=== PATIENT | female | born 1970 | race Caucasian/White ===

== ENCOUNTER 2020-03-21 15:10 | Outpatient (REF) | payer MEDICAID, SELFPAY ==
--- NOTE | 2020-03-21 | XR_ITS ---
EXAMINATION: XR ELBOW, LEFT CLINICAL INFORMATION: Left elbow pain COMPARISON: None TECHNIQUE: AP, lateral, and oblique views of the left elbow. FINDINGS: The bones and soft tissues are normal. No fracture or joint effusion. Alignment is anatomic. Joint spaces are maintained. IMPRESSION: Normal left elbow.
== END 2020-03-21 15:11 | disposition home or self-care (01) ==
LOC: HO.XRAY 15:10
PROVIDERS: PCP Nurse Practitioner Family; Visit Provider Nurse Practitioner Family
DX: M25.522 Pain in left elbow (principal)
CPT/HCPCS: 73080

== ENCOUNTER 2021-07-26 08:10 | Outpatient (REF) | payer MEDICAID, SELFPAY ==
--- NOTE | ~2021-07-26 | XR_ITS ---
EXAMINATION: XR ELBOW, RIGHT CLINICAL INFORMATION: Lateral epicondylitis right elbow. COMPARISON: None TECHNIQUE: AP, lateral, and oblique views of the right elbow. FINDINGS: There is no evidence of acute fracture or dislocation of the right elbow. No right elbow effusion. Right elbow joint spaces are maintained. No significant soft tissue swelling is noted. There is a spur seen about the medial epicondyle with no definite lateral epicondylar calcification identified. XR/XR elbow RT min 3V IMPRESSION: Evidence for medial epicondylitis with no definite calcification or spurring about the lateral epicondyle. No elbow effusion.
== END 2021-07-26 08:11 | disposition home or self-care (01) ==
LOC: HO.XRAY 08:10
PROVIDERS: Absent Provider Registered Nurse Community Health; PCP Registered Nurse Community Health; Visit Provider Internal Medicine
DX: M77.11 Lateral epicondylitis, right elbow (principal)
CPT/HCPCS: 73080

== ENCOUNTER → 2021-08-20 14:38 | Outpatient (BNVA) | payer MEDICAID, SELFPAY | PROVIDERS: PCP Registered Nurse Community Health; Visit Provider Physician Assistant | DX: M77.11 Lateral epicondylitis, right elbow (principal) | CPT/HCPCS: 99202; J1020 ==

== ENCOUNTER 2021-09-20 07:52 | Outpatient (REF) | payer MEDICAID, SELFPAY ==
[2021-09-20 08:18] LABS: MANUAL DIFF FLAG NO
[2021-09-20 08:43] LABS: Basophils Percent Auto 0.7 % (0-2); Eosinophils Absolute Auto 0.2 X10*3/uL (0.0-0.4); Eosinophils Percent Auto 3.3 % (0-4); Hematocrit 41.5 % (37.0-47.0); Hemoglobin 13.8 g/dl (12.0-16.0); Imm Gran Abs Auto 0.02 X10*3/uL (0.00-0.03); Imm Gran Pct Auto 0.3 % (0.0-0.4); Mean Corpuscular HGB Conc 33.3 g/dl (31.0-35.0); Mean Corpuscular Hemoglobin 31.9 pg (27.0-33.0); Mean Corpuscular Volume 95.8 fL (80.0-98.0); Mean Platelet Volume 9.8 fL (9.4-12.3); Monocytes Absolute Auto 0.4 X10*3/uL (0.1-1.2); Monocytes Percent Auto 7.1 % (2-11); Neutrophils Absolute Auto 3.1 x10*3/uL (2.0-8.3); Neutrophils Percent Auto 53.6 % (45-73); Platelet Count 273 X10*3/uL (160-400); Red Blood Count 4.33 X10*6/uL (4.20-5.50); Red Cell Distribution Width 12.7 % (11.0-16.0); White Blood Count 5.8 X10*3/uL (4.8-10.8)
[2021-09-20 08:53] LABS: Estimated Average Glucose 100 mg/dL; Hemoglobin A1c % 5.1 %
[2021-09-20 09:08] LABS: Appearance Urine CLEAR; Color Urine YELLOW; Glucose Urine UA NEG (NEG); Leukocyte Esterase Urine NEG (NEG); Nitrite Urine NEG (NEG); Specific Gravity - Urine >= 1.030 (1.005-1.025); Urine Blood NEG (NEG); Urine Ketones NEG (NEG); Urine Protein NEG (NEG-TRACE)
[2021-09-20 09:19] LABS: Alanine Aminotransferase 22 U/L (0-31); Albumin Level 3.9 g/dL (3.5-5.0); Alkaline Phosphatase 92 U/L (39-117); Anion Gap 12 (12-20); Aspartate Amino Transferase 17 U/L (5-31); Bilirubin Total 0.7 mg/dL (0.0-1.0); Blood Urea Nitrogen 17 mg/dL (9-16); C Reactive Protein 0.42 mg/dL (< or = 0.50); Calcium 9.7 mg/dL (8.4-10.2); Carbon Dioxide 29 mmol/L (22-29); Chloride 107 mmol/L (96-108); Cholesterol 191 mg/dL; Estimated Glomerular Filt Rate > 60; Glucose Random 94 mg/dL (60-115); HDL Cholesterol 58 mg/dL; LDL Cholesterol Calculated 112 mg/dl; Potassium 4.7 mmol/L (3.3-5.1); Rheumatoid Factor < 15.0 IU/mL (<15.0); Sodium 143 mmol/L (135-145); Total Protein 6.7 g/dL (6.5-8.0); Triglycerides 107 mg/dL
[2021-09-20 09:28] LABS: HIV AB/AG Nonreactive (Nonreactive)
[2021-09-20 09:31] LABS: TSH reflex Free T4 2.93 uIU/mL (0.32-4.0); Vitamin D 25-OH Total 39.3 ng/mL (>30)
[2021-09-20 09:35] LABS: Uric Acid 6.4 mg/dL (2.4-5.7)
[2021-09-20 09:36] LABS: Syphilis Screen Nonreactive (Nonreactive)
[2021-09-20 09:42] LABS: Vitamin B12 170 pg/mL (200-900)
[2021-09-20 11:46] LABS: Erythrocyte Sedimentation Rate 11 MM/HR (0-20)
[2021-09-20 14:02] LABS: CT PCR NOT DETECTED (Not Detect.); NG PCR NOT DETECTED (Not Detect.)
[2021-09-24 12:21] LABS: Anti Nuclear Antibody Screen NEGATIVE (NEGATIVE)
== END 2021-09-20 07:53 | disposition home or self-care (01) ==
LOC: HO.LAB 07:52
PROVIDERS: PCP Internal Medicine; Visit Provider Internal Medicine
DX: Z11.4 Encounter for screening for human immunodeficiency virus [HIV] (principal); E55.9 Vitamin D deficiency, unspecified; E78.00 Pure hypercholesterolemia, unspecified; E79.0 Hyperuricemia without signs of inflammatory arthritis and tophaceous disease; K21.9 Gastro-esophageal reflux disease without esophagitis
CPT/HCPCS: 80053; 80061; 81003; 82306; 82607; 83036; 84443; 84550; 85025; 85652; 86038; 86039; 86140; 86431; 86780; 87389; 87491; 87591

== ENCOUNTER 2021-10-18 09:49 | Outpatient (REF) | payer MEDICAID, SELFPAY ==
--- NOTE | ~2021-10-18 | MM_ITS ---
EXAMINATION: MM SCREENING DIGITAL BREAST TOMOSYNTHESIS, BILATERAL CLINICAL INFORMATION: Screening. Asymptomatic. The lifetime risk of breast cancer based on the Tyrer-Cuzick Model is 7%. COMPARISON: Mammography: 03/01/2019, 02/18/2018, 01/06/2017 TECHNIQUE: Digital breast tomosynthesis is performed in both the craniocaudal and mediolateral oblique views along with computer-aided detection (CAD). Synthesized 2D images are generated from the tomosynthesis. FINDINGS: The breasts are almost entirely fatty (ACR BI-RADS breast composition Category a). There are no significant masses, abnormal calcifications, or other abnormalities. Background stromal and fibroglandular densities are stable. The axilla and skin contours are unremarkable. MM/MM tomosynthesis screening BI IMPRESSION: No mammographic evidence of malignancy. ASSESSMENT: BI-RADS 1: Negative RECOMMENDATION: Routine annual mammography screening. This patient's information was entered into a reminder system with a target due date for their next mammogram.
== END 2021-10-18 09:50 | disposition home or self-care (01) ==
LOC: HO.MAMMO 09:49
PROVIDERS: Visit Provider Internal Medicine
DX: Z12.31 Encounter for screening mammogram for malignant neoplasm of breast (principal)
CPT/HCPCS: 77063; 77067

== ENCOUNTER 2022-10-13 07:43 | Outpatient (REF) | payer MEDICAID, SELFPAY ==
--- NOTE | ~2022-10-13 | XR_ITS ---
EXAMINATION: XR ELBOW, RIGHT CLINICAL INFORMATION: Pain without injury. COMPARISON: None available. TECHNIQUE: AP, lateral, and oblique views of the right elbow. FINDINGS: The bones and soft tissues are normal. No fracture or joint effusion. Alignment is anatomic. Joint spaces are maintained. XR/XR elbow RT min 3V IMPRESSION: Normal right elbow.
--- NOTE | ~2022-10-13 | XR_ITS ---
EXAMINATION: XR WRIST, LEFT CLINICAL INFORMATION: Pain without injury. COMPARISON: None available. TECHNIQUE: PA, lateral, and oblique views of the left wrist. FINDINGS: The bones and soft tissues are normal. No fracture. Alignment is anatomic with normal joint spaces. There is a slight ulnar positive variance. No erosions or abnormal soft tissue calcifications. XR/XR wrist LT min 3V IMPRESSION: Normal left wrist.
== END 2022-10-13 07:44 | disposition home or self-care (01) ==
LOC: HO.XRAY 07:43
PROVIDERS: Visit Provider Family Medicine
DX: M25.521 Pain in right elbow (principal); M25.532 Pain in left wrist
CPT/HCPCS: 73080; 73110

== ENCOUNTER 2023-03-26 12:40 | Outpatient (REF) | payer MEDICAID, SELFPAY ==
--- NOTE | ~2023-03-26 | XR_ITS ---
EXAMINATION: XR CHEST CLINICAL INFORMATION: Cough. History of contact with suspected Covid exposure. COMPARISON: None available. TECHNIQUE: 2 views of the chest were obtained. FINDINGS: Lungs are well expanded and clear. No evidence of interstitial infiltrate, airspace disease, pleural effusion or pneumothorax. Cardiac silhouette is normal in size. The hilar contours are normal. There is dextroscoliosis of the thoracic spine. XR/XR chest 2V IMPRESSION: No acute findings. No radiographic evidence of pneumonia.
== END 2023-03-26 12:41 | disposition home or self-care (01) ==
LOC: HO.HHCX 12:40
PROVIDERS: Visit Provider Internal Medicine
DX: Z20.822 Contact with and (suspected) exposure to COVID-19 (principal); R05.1 Acute cough
CPT/HCPCS: 71046

== ENCOUNTER 2024-10-10 11:42 | Outpatient (REF) | payer MEDICAID, SELFPAY ==
--- NOTE | ~2024-10-10 | XR_ITS ---
EXAMINATION: XR SHOULDER, RIGHT CLINICAL INFORMATION: severe worsening neck and shoulder pain COMPARISON: None available. TECHNIQUE: AP external rotation, Grashey, scapular Y, and axillary views of the right shoulder. FINDINGS: No acute cortical disruption or malalignment. No lytic or blastic lesions. No gross degenerative changes. No metallic or opaque foreign body. S-shaped curvature of the thoracic spine. XR/XR shoulder RT min 2V IMPRESSION: Normal x-ray right shoulder. Scoliosis, thoracic spine. Electronically signed by: Steve Hedrick MD 10/10/2024 01:04 PM EDT
--- NOTE | ~2024-10-10 | XR_ITS ---
EXAMINATION: XR CERVICAL SPINE CLINICAL INFORMATION: PAIN COMPARISON: None available. TECHNIQUE: 3 views of the cervical spine were obtained. FINDINGS: Craniocervical junction is intact. Marginal osteophyte formation at C5-6 and C6-7 levels. Normal alignment. No lytic or blastic lesions. Upper airway is patent. Edentulous. XR/XR cervical spine 3V IMPRESSION: Cervical spondylosis, C5-6 and C6-7 levels. Electronically signed by: Steve Hedrick MD 10/10/2024 01:03 PM EDT
--- OUTSIDE RECORDS SUMMARY | 2024-10-10 14:04 | XMS_ITS | Encounter Summary ---
Author Organization [employer] Address [address] [facility] [address] [place] [address] Care Team Providers Care Oil And Gas Principal Name Role Phone Nedra Bob Primary Care Provider [phone] Hortensia Iraheta MD Primary Care Provider + Reason for Visit * Reason Comments Med Refill Encounter Details Date Type Department Care Team (Late st Contact Info) Description 10/04/[address] [facility] [address] [place] [address] Nedra Bob FNP [address] [place] [address] Idiopathic gout, unspecified chronicity, unspecified site Social History Tobacco Use Types Packs/Day Years Used Date Smoking Tobacco: Never Assessed Comments Unknown Sex and Gender Information Value Date Recorded Sex Assigned at Female 04/14/2022 10:15 AM EDT Legal Sex Female 10:15 AM EDT Gender Identity Female 04/14/2022 10:15 AM EDT Sexual Orientation Choose not to disclose 2021 10:15 AM EDT documented as of this encounter Miscellaneous Notes * Telephone Encounter - Nedra Bob CNP - 10/08/2022 5:26 PM EDT Approving, but needs appt for additional refills. documented in this encounter Plan of Treatment Not on file documented as of this encounter Visit Diagnoses Diagnosis Idiopathic gout, unspecified chronicity, unspecified site documented in this encounter Care Teams Oil And Gas Principal Relationship Specialty Start Date End Date Nedra Bob FNP [address] [place] [address] PCP - General Family Medicine 03/21/22 02/15/24 Hortensia Iraheta MD [address] [place] [address] PCP - General Internal Medicine 02/16/24 documented as of this encounter
--- OUTSIDE RECORDS SUMMARY | 2024-10-10 14:04 | XMS_ITS | Encounter Summary ---
Author Organization [email or web address] Address [address] [facility] [address] [place] [address] Care Team Providers Care French Instructor Name Role Phone Nedra Bob Primary Care Provider [phone] Hortensia Iraheta MD Primary Care Provider + Reason for Visit * Reason Comments Med Refill Encounter Details Date Type Department Care Team (Late st Contact Info) Description 12/09/[address] [facility] [address] [place] [address] Marilyn Hinds DO [address] [place], [place] [id number] Social History Tobacco Use Types Packs/Day Years Used Date Smoking Tobacco: Former Cigarettes Q uit: 2018 Passive Smoke Exposure: Never Smokeless Tobacco: Never Alcohol Use Standard Drinks/Week Comments Yes 0 (1 standard drink = 0.6 oz pur e alcohol) occasional Depression Answer Date Recorded Patient Health Questionnaire-9 Score 3 10/22/2022 Depression Answer Date Recorded Patient Health Questionnaire-2 Score 0 10/22/2022 Comments Unknown Sex and Gender Information Value Date Recorded Sex Assigned at Female 04/14/2022 10:15 AM EDT Legal Sex Female 10:15 AM EDT Gender Identity Female 04/14/2022 10:15 AM EDT Sexual Orientation Choose not to disclose 2021 10:15 AM EDT COVID-19 Exposure Response Date Recorded In the last 10 days, have yo u been in contact with someone who was confirmed or suspected to have Coronavirus/COVID-19? No / Unsure 11/21/2022 1:55 PM EDT documented as of this encounter Plan of Treatment Not on file documented as of this encounter Visit Diagnoses Not on filedocumented in this encounter Additional Health Concerns Assessment Noted Time PHQ-9 Depression Total Score: 3 10/23/19 23 2:00 PM EDT documented as of this encounter Care Teams French Instructor Relationship Specialty Start Date End Date Nedra Bob FNP [address] [place] [address] PCP - General Family Medicine 03/21/22 02/15/24 Hortensia Iraheta MD [address] [place] [address] PCP - General Internal Medicine 02/16/24 documented as of this encounter
--- OUTSIDE RECORDS SUMMARY | 2024-10-10 14:04 | XMS_ITS | Encounter Summary ---
Author Organization [employer] Address [address] [facility] [address] [place] [address] Care Team Providers Care Pulverizer Feeder Name Role Phone Hortensia Iraheta MD Primary Care Provider + Encounter Details Date Type Department Care Team (Latest Contact Info) Description 10/10/2024 Travel Social History Tobacco Use Types Packs/Day Years Used Date Smoking Tobacco: Former Cigarettes Q uit: 2018 Passive Smoke Exposure: Never Smokeless Tobacco: Never Alcohol Use Standard Drinks/Week Comments Yes 0 (1 standard drink = 0.6 oz pur e alcohol) occasional Depression Answer Date Recorded Patient Health Questionnaire-9 Score 3 10/22/2022 Housing Stability Answer Date Recorded What is your housing situation today? I have maria a walters 03/31/[address] you li ve. Do you have problems with any of the following? None of the above 03/31/2023 Food Insecurity Answer Date Recorded Within the past 12 months, y ou worried that your food would run out before you got money to buy more: Never True 03/31/2023 Within the past 12 months,th e food you bought just didn't last and you didn't have enough money to get more: Never True Transportation Answer Date Recorded In the past 12 months, has l ack of transportation kept you from medical appts, meetings, work or from getting things needed for daily living? No 03/31/2023 Utilities Answer Date Recorded In the past 12 months, has t he electric, gas, oil or water company threatened to shut off services in your home? No 03/31/2023 Depression Answer Date Recorded Patient Health Questionnaire-2 Score 0 10/22/2022 Comments Unknown Sex and Gender Information Value Date Recorded Sex Assigned at Female 04/14/2022 10:15 AM EDT Legal Sex Female 10:15 AM EDT Gender Identity Female 04/14/2022 10:15 AM EDT Sexual Orientation Choose not to disclose 2021 10:15 AM EDT documented as of this encounter Plan of Treatment Not on file documented as of this encounter Visit Diagnoses Not on filedocumented in this encounter Additional Health Concerns Assessment Noted Time PHQ-9 Depression Total Score: 3 10/23/19 23 2:00 PM EDT documented as of this encounter Care Teams Pulverizer Feeder Relationship Specialty Start Date End Date Hortensia Iraheta MD [address] [place] [id number] PCP - General Internal Medicine 02/16/24 documented as of this encounter
--- OUTSIDE RECORDS SUMMARY | 2024-10-10 14:04 | XMS_ITS | Encounter Summary ---
Author Organization [employer] Address [address] [facility] [address] [place] [address] Care Team Providers Care Grease Rack Worker Name Role Phone Nedra Bob Primary Care Provider [phone] Hortensia Iraheta MD Primary Care Provider + Reason for Visit * Reason Comments Med Refill Encounter Details Date Type Department Care Team ([facility] st Contact Info) Description 04/05/2023 Refill [facility] [address] [place] [address] Marilyn Hinds, DO [address] [place] [address] Social History Tobacco Use Types Packs/Day Years [...] documented as of this encounter Care Teams Grease Rack Worker Relationship Specialty Start Date End Date Nedra Bob FNP [address] [place] [address] PCP - General Family Medicine 03/21/22 02/15/24 Hortensia Iraheta MD [address] [place] [address] PCP - General Internal Medicine 02/16/24 documented as of this encounter
--- OUTSIDE RECORDS SUMMARY | 2024-10-10 14:04 | XMS_ITS | Encounter Summary ---
Author Organization [employer] Address [address] [facility] [address] [place] [address] Care Team Providers Care Ob/Gyn Doctor Name Role Phone Nedra Bob Primary Care Provider [phone] Hortensia Iraheta MD Primary Care Provider + Reason for Visit * Reason Comments Med Refill Encounter Details Date Type Department Care Team ([facility] st Contact Info) Description 07/12/2023 Refill [facility] [address] [place] [address] Marilyn Hinds, DO [address] [place] [address] Social History Tobacco Use Types Packs/Day Years [...] documented as of this encounter Care Teams Ob/Gyn Doctor Relationship Specialty Start Date End Date Nedra Bob FNP [address] [place] [address] PCP - General Family Medicine 03/21/22 02/15/24 Hortensia Iraheta MD [address] [place] [address] PCP - General Internal Medicine 02/16/24 documented as of this encounter
--- OUTSIDE RECORDS SUMMARY | 2024-10-10 14:04 | XMS_ITS | Encounter Summary ---
Author Organization [employer] Address [address] [facility] [address] [place] [address] Care Team Providers Care Logging Truck Driver Name Role Phone Hortensia Iraheta MD Primary Care Provider + Encounter Details Date Type Department Care Team (Late st Contact Info) Description 10/10/2024 Orders Only [facility] [address] [place] [address] Marilyn Hinds DO [address] [place] [address] Social History Tobacco Use Types Packs/Day Years [...] the past 12 months, has t he [employer], gas, oil or water company threatened to [...] on file documented as of this encounter Procedures Procedure Name Priority Date/Time Associated Diagnosis Comments XR CERVICAL SPINE 3V Routine 10/10/2024 11:43 AM EDT documented in this encounter Results * XR CERVICAL SPINE 3V (10/10/2024 11:43 AM EDT) Anatomical Region Laterality Modality Abdomen Radiographic Kat ging 10/10/2024 11:4 3 AM EDT Narrative 10/10/2024 1:06 PM EDT ?[facility] ?[address] ?[place] [address] ?XRay Report ? Signed ? Patient: Arin Berger ?MR#: ?? [id number] ? : 1970 ?Acct:[id number] ? Age/Sex: 53 / F ?ADM Date: 10/10/24 ? Loc: HO.HHCX ? Attending Dr: Marilyn Hinds DO ? Ordering Physician: Marilyn Hinds DO ?? Date of Service: 10/10/24 ?? Procedure(s): XR cervical spine 3V ?? Accession Number(s): [id number] ? cc: Marilyn Hinds DO ? EXAMINATION: ?? XR CERVICAL SPINE ? CLINICAL INFORMATION: ?? PAIN ? COMPARISON: ?? None available. ? TECHNIQUE: ?? 3 views of the cervical spine were obtained. ? FINDINGS: ?? Craniocervical junction is intact. Marginal osteophyte formation at ?? C5-6 and C6-7 levels. ?? Normal alignment. ?? No lytic or blastic lesions. Upper airway is patent. ?? Edentulous. ? XR/XR cervical spine 3V ?? IMPRESSION: ?? Cervical spondylosis, C5-6 and C6-7 levels. ? Electronically signed by: ??Steve Hedrick MD ??10/10/2024 01:03 PM ?? EDT RP ? Dictated By: ?Steve Levine MD ? Signed By: ?<Electronically signed by Steve Beltre MD in OV> ? 10/10/24 1303 ? DD/ 1143 ? TD/TT: 10/10/24 1200 ? Carcass Washer: ? Procedure Note Donotlisetteinterpreter, Image - 10/10/[address] [address] XRay Report Signed Patient: Arin Berger AMR#: [id number] : 1970Acct:[id number] Age/Sex: 53 / FADM Date: 10/10/24 Loc: .HHCX Attending Dr: Marilyn Hinds DO Ordering Physician: Marilyn Hinds DO Date of Service: 10/10/24 Procedure(s): XR cervical spine 3V Accession Number(s): [id number] cc: Marilyn Hinds DO EXAMINATION: XR CERVICAL SPINE CLINICAL INFORMATION: PAIN COMPARISON: None available. TECHNIQUE: 3 views of the cervical spine were obtained. FINDINGS: Craniocervical junction is intact. Marginal osteophyte formation at C5-6 and C6-7 levels. Normal alignment. No lytic or blastic lesions. Upper airway is patent. Edentulous. XR/XR cervical spine 3V IMPRESSION: Cervical spondylosis, C5-6 and C6-7 levels. Electronically signed by: Steve Hedrick MD 10/10/2024 01:03 PM EDT Dictated By: Steve Levine MD Signed By: <Electronically signed by Steve Beltre MDin OV> 10/10/24 1303 DD/ 1143 TD/TT: 10/10/24 1200 Carcass Washer: us Marilyn Hinds DO IMG XR PROCEDURES Final Resu lt documented in this encounter Visit Diagnoses Not on filedocumented in this encounter Additional Health Concerns Assessment Noted Time PHQ-9 Depression Total Score: 3 10/23/19 23 2:00 PM EDT documented as of this encounter Care Teams Logging Truck Driver Relationship Specialty Start Date End Date Hortensia Iraheta MD [address] [place] [id number] PCP - General Internal Medicine 02/16/24 documented as of this encounter
--- OUTSIDE RECORDS SUMMARY | 2024-10-10 14:04 | XMS_ITS | Clinical Summary ---
Author Organization [employer] Address [address] [facility] 7t [place] [address] Care Team Providers Care Packer Sausage And Wiener Name Role Phone Hortensia Iraheta MD Primary Care Provider + Allergies Active Allergy Reactions Criticality Noted Date Comments Penicillin G 04/01/2012 Sulfamethoxazole 04/01/2012 Trimethoprim 04/01/2012 Medications cyanocobalamin (Vitamin B-12) 1000 MCG tablet TAKE 1 TABLET (1,000 MCG) BY MOUTH IN THE MORNING 90 tablet 1 07/13/19 24 Active Ventolin HFA 108 (90 Base) MCG/ACT inhaler INHALE 2 PUFFS EVERY 4 HOURS IF NEEDED FOR WHEEZING. 18 g 3 02/09/20 24 Active loratadine (Claritin) 10 MG tablet TAKE 1 TABLET BY MOUTH EVERY DAY NEEDED FOR ALLERGY 90 tablet 07/15/19 25 Active allopurinol (Zyloprim) 100 MG tabletIndicati ons:Idiopathic gout, unspecified chronicity, unspecified site TAKE 1 TABLET BY MOUTH EVERY DAY 90 tablet 07/15/19 25 Active famotidine (Pepcid) 40 MG tablet TAKE 1 TABLET BY MOUTH EVERYDAY AT BEDTIME 90 tablet 07/29/19 25 Active baclofen (Lioresal) 10 MG tablet TAKE 1 TABLET (10 MG) BY MOUTH NEEDED IN THE MORNING , AT NOON, AND AT BEDTIME FOR MUSCLE SPASMS 60 tablet 1 10/11/19 25 Active Diclofenac Sodium 1 % gel Apply 2 g topically if needed in the morning and at bedtime (pain). 150 g 3 10/11/19 25 Active naproxen (Naprosyn) 500 MG tablet Take 1 tablet (500 mg) by mouth if needed in the morning and at bedtime for mild pain. 30 tablet 1 10/11/19 25 2025 Active methylPREDNISo lone (Medrol Dospak) 4 MG tablets Follow schedule on package instructions 21 tablet 10/11/19 25 2024 Active LORazepam (Ativan) 0.5 MG tabletIndicati ons:Neck and shoulder pain Take one tablet PO once 30 minutes prior to MRI 1 tablet 10/11/19 25 Active acetaminophen (Tylenol 8 Hour) 650 MG ER tablet Take 1 tablet (650 mg) by mouth every 8 (eight) hours if needed for mild pain. 60 tablet 1 10/11/19 25 Active Diclofenac Sodium 1 % gel Apply 2 g topically if needed in the morning and at bedtime (pain). 150 g 3 10/10/19 23 2024 Discontinued(R eorder (will not trigger notification to Pharmacy)) baclofen (Lioresal) 10 MG tablet TAKE 1 TABLET (10 MG) BY MOUTH NEEDED IN THE MORNING , AT NOON, AND AT BEDTIME FOR MUSCLE SPASMS 60 tablet 1 12/18/19 23 2024 Discontinued(R eorder (will not trigger notification to Pharmacy)) acetaminophen (Tylenol 8 Hour) 650 MG ER tablet TAKE 1 TABLET BY MOUTH EVERY 8 HOURS NEEDED FOR PAIN 40 tablet 1 12/07/19 24 2024 Discontinued(R eorder (will not trigger notification to Pharmacy)) Active Problems Problem Noted Date Diagnosed Date Contact with and (suspected) exposure to covid-1 9 03/26/2023 Acute cough 03/26/2023 COVID-19 03/26/2023 Assessment & Plan (03/26/2023 12:30 PM EDT): Pt initially tested positive 03/19/2023 with an at home test kit per her report. Initial symptoms included fever, sore throat and cough. She has been using over the counter cough suppressants with good relief. She feels better overall, no fever for over 72 hrs, but still having dry cough, No sob or any other associated symptoms. O2 sat normal, lungs clear Overall improving. Not a candidate for antivirals given that its been 7 days since she tested positive for the first time Today her test is still positive Plan: Continue conservative measures. Excuse for work until Thursday, Chest x-ray gien persistent cough Follow up if symptoms worsen or do not continue to improve Lateral epicondylitis of left elbow 10/09/2022 Pain in elbow 10/09/2022 Vitamin D deficiency 07/15/2017 Mild intermittent asthma 09/26/2015 Encounters Date Type Department Care Team Description 10/10/2024 11:15 AM EDT Office Visit [facility] [address] [place] [address] Marilyn Hinds DO Neck and shoulder pain (Primary Dx) 10/10/2024 Orders Only [facility] [address] [place] [address] Marilyn Hinds DO 10/10/2024 Travel 09/01/2024 10:00 AM EDT Office Visit [facility] [address] [place] [address] DanasSocorro, OD Hyperopia of both eyes with astigmatism and presbyopia (Primary Dx); 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 09/01/2024 Travel 08/26/2024 Population Health Risk Score [facility] Department [address] [id number] Provider, Population Health Generic 07/28/2024 Refill [facility] [address] [place] [address] Nedra Bob FNP 07/15/2024 Refill [facility] [address] [place] [address] Nedra Bob FNP Idiopathic gout, unspecified chronicity, unspecified site from Last 3 Months Immunizations Name Administration Dates Next Due MMR 10/15/1994 TD (adult), 2 Lf tetanus tox oid, preservative free, adsorbed 04/10/2008 Tdap 04/25/2016 Family History Medical History Relation Name Comments Diabetes type II Father Lymphoma Mother Relation Name Status Comments Father Mother Social History Tobacco Use Types Packs/Day Years Used Date Smoking Tobacco: Former Cigarettes Q uit: 2018 Passive Smoke Exposure: Never Smokeless Tobacco: Never Tobacco Cessation:Counseling Given: Not Answered Alcohol Use Standard Drinks/Week Comments Yes 0 [...] not to disclose 2021 10:15 AM EDT Last Filed Vital Signs Vital Sign Reading Time Taken Comments Blood Pressure 136/78 10/10/2024 11:02 AM EDT Pulse 68 10/10/2024 11:02 AM EDT Temperature 36.8 ??C (98.3 ??F) 10/10/2024 11:02 AM E DT Respiratory Rate 21 10/10/2024 11:02 AM EDT Oxygen Saturation 95% 10/10/2024 11:02 AM EDT Inhaled Oxygen Concentration - - Weight 69 kg (152 lb 2 oz) 10/10/2024 11:02 AM E DT Height 160 cm (5' 3 ) 10/10/2024 11:02 AM EDT Body Mass Index 26.95 10/10/2024 11:02 AM EDT Plan of Treatment Health Maintenance Due Date Last Done Comments CT Colonography 1969 Colonoscopy 1969 Colorectal Cancer Screening 1969 FIT DNA/Cologuard 1969 FIT 1969 FOBT 1969 Sigmoidoscopy 1969 Alcohol/Substance Use Screening 1981 Hepatitis C Screening 12/22/1987 Hepatitis B Vaccines (1 of 3 - 19+ 3-dose series) 1988 Pneumococcal Vaccine: 50+ Years (1 of 2 - PCV) 1988 Pap Smear 1990 Zoster Vaccines (1 of 2) 12/22/2019 Cervical Cancer Screening 02/09/2022 HPV/Cotest 02/09/2022 02/09/2017 Mammogram 10/19/2023 10/18/2021, 03/03/2019, 02/19/2018 Depression Screening 10/23/2023 10/22/2022, 10/22/2022 SDOH Screening 10/23/2023 10/22/2022 COVID-19 Vaccine (3 - 2023-2 5 season) 2024 07/25/2021, 05/21/2021 Influenza Vaccine (#1) 2024 Tobacco Screening 10/10/2025 10/10/2024 DTaP/Tdap/Td Vaccines (2 - T d or Tdap) 04/25/2026 04/25/2016, 04/10/2008 RSV Patients and Patients Aged 60 years or older (1 - 1-dose 75+ series) 2044 HIV Screening Completed 10/28/2022, 09/20/2021 HIB Vaccines Aged Out No longer eligi ble based on patient's age to complete this topic HPV Vaccines Aged Out No longer eligi ble based on patient's age to complete this topic Hepatitis A Vaccines Aged Out No long er eligible based on patient's age to complete this topic IPV Vaccines Aged Out No longer eligi ble based on patient's age to complete this topic Meningococcal Vaccine Aged Out No shannon mirlande eligible based on patient's age to complete this topic RSV under 20 months Aged Out No longe r eligible based on patient's age to complete this topic Rotavirus Vaccines Aged Out No longer eligible based on patient's age to complete this topic Procedures Procedure Name Priority Date/Time Associated Diagnosis Comments XR CERVICAL SPINE 3V Routine 10/10/2024 11:43 AM EDT XR SHOULDER 2+ VIEWS RIGHT Routine 10/10/2024 11:42 AM EDT Neck and shoulder pain HIV 1 RNA, QN PCR W/RFL PETE (RTI,PI,INTEGRASE) Routine 10/28/2022 9:33 AM EDT Routine screening for STI (sexually transmitted infection) MAMMOGRAM GENERIC Routine 10/18/2021 10: 15 AM EDT ZZZ HISTORICAL HPV MRNA E6/E7 Routine 02/09/2017 9:55 AM EDT from Last 3 Months or Most Recently Relevant to Health Maintenance Results * XR CERVICAL SPINE 3V (10/10/2024 11:43 AM EDT) Anatomical Region Laterality Modality Abdomen Radiographic Kat ging 10/10/2024 11:4 3 AM EDT Narrative 10/10/2024 1:06 PM EDT ?[facility] ?[address] ?[place] [address] ?XRay Report ? Signed ? Patient: Arin Berger ?MR#: ?? [id number] ? : 1970 ?Acct:[id number] ? Age/Sex: 53 / F ?ADM Date: 10/10/24 ? Loc: HO.[facility]X ? Attending Dr: Marilyn Hinds DO ? Ordering Physician: Marilyn Hinds DO ?? Date of Service: 10/10/24 ?? Procedure(s): XR cervical spine 3V ?? Accession Number(s): [id number] ? cc: Marilyn Hinds DO ? EXAMINATION: [...] DD/ 1143 ? TD/TT: 10/10/24 1200 ? Policy And Planning Manager: ? Procedure Note Donotlisetteinterpreter, Image - 10/10/[address] [address] XRay Report Signed Patient: Arin Berger AMR#: [id number] : 1970Acct:[id number] Age/Sex: 53 / FADM Date: 10/10/24 [facility] Dr: Marilyn Hinds DO Ordering Physician: Marilyn Hinds DO Date of Service: 10/10/24 Procedure(s): XR cervical spine 3V Accession Number(s): [id number] cc: Marilyn Hinds DO EXAMINATION: XR CERVICAL [...] 10/10/24 1303 DD/ 1143 TD/TT: 10/10/24 1200 Policy And Planning Manager: us Marilyn Jurcsak DO IMG XR PROCEDURES Final Resu lt * XR Shoulder 2+ Views Right (10/10/2024 11:42 AM EDT) Anatomical Region Laterality Modality Upper Extremities, Shoulder Right Radi ographic Imaging 10/10/2024 11:4 2 AM EDT Narrative 10/10/2024 1:07 PM EDT ?[facility] ?[address] ?[place] [address] ?XRay Report ? Signed ? Patient: Arin Berger ?MR#: ?? [id number] ? : 1970 ?Acct:[id number] ? Age/Sex: 53 / F ?ADM Date: 10/10/24 ? Loc: HO.[facility]X ? Attending Dr: Marilyn Hinds DO ? Ordering Physician: Marilyn Hinds DO ?? Date of Service: 10/10/24 ?? Procedure(s): XR shoulder RT min 2V ?? Accession Number(s): [id number] ? cc: Marilyn Hinds DO ? EXAMINATION: ?? XR SHOULDER, RIGHT ? CLINICAL INFORMATION: ?? severe worsening neck and shoulder pain ? COMPARISON: ?? None available. ? TECHNIQUE: ?? AP external rotation, Grashey, scapular Y, and axillary views of the ?? right shoulder. ? FINDINGS: ?? No acute cortical disruption or malalignment. No lytic or blastic ?? lesions. No gross degenerative changes. No metallic or opaque foreign ?? body. S-shaped curvature of the thoracic spine. ? XR/XR shoulder RT min 2V ?? IMPRESSION: ?? Normal x-ray right shoulder. ?? Scoliosis, thoracic spine. ? Electronically signed by: ??Steve Hedrick MD ??10/10/2024 01:04 PM ?? EDT RP ? Dictated By: ?Steve Levine MD ? Signed By: ?<Electronically signed by Steve Beltre MD in OV> ? 10/10/24 1304 ? DD/ 1142 ? TD/TT: 10/10/24 1200 ? Policy And Planning Manager: ? Procedure Note Simona, Image - 10/10/[address] [address] XRay Report Signed Patient: Arin Berger AMR#: [id number] : 1970Acct:[id number] Age/Sex: 53 / FADM Date: 10/10/24 Loc: [facility] Attending Dr: Marilyn Hinds DO Ordering Physician: Marilyn Hinds DO Date of Service: 10/10/24 Procedure(s): XR shoulder RT min 2V Accession Number(s): [id number] cc: Marilyn Hinds DO EXAMINATION: XR SHOULDER, RIGHT CLINICAL INFORMATION: severe worsening neck and shoulder pain COMPARISON: None available. TECHNIQUE: AP external rotation, Grashey, scapular Y, and axillary views of the right shoulder. FINDINGS: No acute cortical disruption or malalignment. No lytic or blastic lesions. No gross degenerative changes. No metallic or opaque foreign body. S-shaped curvature of the thoracic spine. XR/XR shoulder RT min 2V IMPRESSION: Normal x-ray right shoulder. Scoliosis, thoracic spine. Electronically signed by: Steve Hedrick MD 10/10/2024 01:04 PM EDT Dictated By: Steve Levine MD Signed By: <Electronically signed by Steve Beltre MDin OV> 10/10/24 1304 DD/ 1142 TD/TT: 10/10/24 1200 Policy And Planning Manager: Marilyn Hinds DO IMG XR PROCEDURES Final Resu lt * HIV-1 RNA, Quantitative, Real-Time PCR with Reflex to Genotype (RTI, PI, Integrase) (10/28/2022 9:33 AM EDT) HIV 1 RNA, QN PCR NOT DETECTED copies/mL [facility], HIV 1 RNA, QN PCR NOT DETECTED Log copies/mL [facility], Comment: REFERENCE RANGE: NOT DETECTED copies/mL ?NOT DETECTED ??Log copies/mL This test was performed using Real-Time Polymerase Chain Reaction. Reportable range is 20 to 10,000,000 copies/mL (1.30-7.00 Log copies/mL). 10/28/2022 9:33 AM EDT 10/28/2022 9:34 AM EDT Narrative [facility] - 11/01/2022 1:28 PM EDT FASTING:NO FASTING: NO Nedra Bob MEDIA MONITOR LAB BLOOD ORDERABLES Final Resu lt [facility] [address], [place] [address] [employer] [facility], [address] [place] [phone] * Mammography Report 1 (10/18/2021 10:15 AM EDT) Anatomical Region Laterality Modality Breast Bilateral Mammography 10/18/2021 10:1 5 AM EDT Narrative 10/21/2021 9:21 AM EDT Refer to the Notes tab for result details [facility] Procedure: Mammography Report 1 Procedure Note ProviderDonta MD - 09/07/2022 Refer to the Notes tab for result details [facility] Procedure: Mammography Report 1 Qasim Nuñez MD IMG BI PROCEDURES Final Resu lt * HPV mRNA E6/E7 (02/09/2017 9:55 AM EDT) HPV mRNA E6/E7 Not Detected NOT DETECTED [facility] Comment: This test was performed using the APTIMA(R) HPV Assay ([employer] This assay detects E6/E7 viral messenger RNA (mRNA) from 14 high-risk HPV types (16,18,31,33,35,39,45,51, 52,56,58,59,66,68). For additional information please refer to: http://education.[employer]/faq/YCA367l8 (This link is being provided for informational/ educational purposes only.) Test Performed by [employer], [employer] [facility], [address] [place] [id number] En Gordon M.D., Ph.D., Director of Laboratories , [place] [id number] Please note: ??Effective 02/25/2016, HPV testing will be performed using [employer]'s APTIMA test which targets mRNA. Detecting mRNA instead of DNA, as in older methods, offers significant improvements in specificity. 02/09/2017 9:55 AM EDT us Dora Sanders NP HISTORICAL/NON ORDERABLE LABS Fi nal Result [facility] [address] from Last 3 Months or Most Recently Relevant to Health Maintenance Insurance [facility] C3 HSN FULL Care Teams Packer Sausage And Wiener Relationship Specialty Start Date End Date Hortensia Iraheta MD [address] [place] [address] PCP - General Internal Medicine 02/16/24
--- OUTSIDE RECORDS SUMMARY | 2024-10-10 14:04 | XMS_ITS | Encounter Summary ---
Author Organization [employer] Address [address] [facility] [address] [place] [address] Care Team Providers Care Conveyor Feeder Offbearer Name Role Phone Hortensia Iraheta MD Primary Care Provider + Reason for Referral * Imaging (Routine) - Pending Review Specialty Diagnoses / Procedures Referred By Controdo martínez Referred To Contact Radiology Diagnoses Neck and shoulder pain Procedures MR Shoulder w/o Contrast Right Marilyn Hinds DO [address] [place] [address] Phone: tel: fax: Referral ID Status Reason Start Date Expiration Date V isits Requested Visits Authorized [id number] Pending Review 10/10/2024 10/10/2025 1 1 Encounter Details Date Type Department Care Team (Late st Contact Info) Description 10/10/2024 11:15 AM EDT Office Visit [facility] [address] [place], [place] [phone] Marilyn Hinds DO [address] [place], [place] [phone] Neck and shoulder pain (Primary Dx) Social History Tobacco Use Types Packs/Day Years [...] AM EDT documented as of this encounter Last Filed Vital Signs Vital Sign Reading [...] Mass Index 26.95 10/10/2024 11:02 AM EDT documented in this encounter Plan of Treatment Scheduled Orders Name Type Priority Associated Diagnoses Orde r Schedule XR Cervical Spine 2-3 Views Imaging Routine Neck and shoulder pain Expected: 10/10/2024, Expires: 10/10/2025 MR Shoulder w/o Contrast Right Imaging Routine Neck and shoulder pain Expected: 10/10/2024, Expires: 10/10/2025 documented as of this encounter Procedures Procedure Name Priority Date/Time Associated Diagnosis Comments XR SHOULDER 2+ VIEWS RIGHT Routine 10/10/2024 11:42 AM EDT Neck and shoulder pain documented in this encounter Results * XR Shoulder 2+ Views Right (10/10/2024 11:42 AM EDT) Anatomical Region Laterality Modality Upper Extremities, Shoulder Right Radi ographic Imaging 10/10/2024 11:4 2 AM EDT Narrative 10/10/2024 1:07 PM EDT ?[facility] ?[address] ?[place] [address] ?XRay Report ? Signed ? Patient: Arin Berger ?MR#: ?? [id number] ? : 1970 ?Acct:[id number] ? Age/Sex: 53 / F ?ADM Date: 10/10/24 ? Loc: HO.[facility] ? Attending Dr: Marilyn Hinds DO ? Ordering Physician: Marilyn Hinds DO ?? Date of Service: 10/10/24 ?? Procedure(s): XR shoulder RT min 2V ?? Accession Number(s): [id number] ? cc: Marilyn Hinds DO ? EXAMINATION: [...] DD/ 1142 ? TD/TT: 10/10/24 1200 ? Help Desk Team Leader: ? Procedure Note Donotlisetteinterpreter, Image - 10/10/[address] [address] XRay Report Signed Patient: Arin Berger AMR#: [id number] : 1970Acct:[id number] Age/Sex: 53 / FADM Date: 10/10/24 Loc: [facility] Attending Dr: Marilyn Hinds DO Ordering Physician: Marilyn Hinds DO Date of Service: 10/10/24 Procedure(s): XR shoulder RT min 2V Accession Number(s): [id number] cc: Marilyn Hinds DO EXAMINATION: XR SHOULDER, [...] 10/10/24 1304 DD/ 1142 TD/TT: 10/10/24 1200 Help Desk Team Leader: Marilyn Hinds DO IMG XR PROCEDURES Final Resu lt documented in this encounter Visit Diagnoses Diagnosis Neck and shoulder pain- Primary documented in this encounter Additional Health Concerns Assessment Noted Time PHQ-9 Depression Total Score: 3 05/10/20 23 2:00 PM EDT documented as of this encounter Care Teams Conveyor Feeder Offbearer Relationship Specialty Start Date End Date Hortensia Iraheta MD [address] [place] [phone] PCP - General Internal Medicine 02/16/24 documented as of this encounter
== END 2024-10-10 11:43 | disposition home or self-care (01) ==
LOC: HO.HHCX 11:42
PROVIDERS: Visit Provider Family Medicine
DX: M54.2 Cervicalgia (principal); M25.511 Pain in right shoulder
CPT/HCPCS: 72040; 73030

== ENCOUNTER → 2024-10-10 11:42 | Outpatient (BNV) | payer MEDICAID, SELFPAY | PROVIDERS: Visit Provider Radiology Diagnostic Radiology | DX: M47.812 Spondylosis without myelopathy or radiculopathy, cervical region (principal); M41.34 Thoracogenic scoliosis, thoracic region | CPT/HCPCS: 72040; 73030 ==

== ENCOUNTER 2024-10-14 18:17 | Outpatient (REF) | payer MEDICAID, SELFPAY ==
--- NOTE | ~2024-10-14 | MR_ITS ---
EXAMINATION: MR SHOULDER, RIGHT CLINICAL INFORMATION: Severe shoulder pain with decreased range of motion and positive Meeks sign. COMPARISON: No prior MRI. Plain films of the right shoulder 10/02/2024. TECHNIQUE: Multiplanar multisequence MR imaging of the right shoulder was done without IV contrast. Examination performed on a 1.5 Gill Siemens unit utilizing standard sequences. FINDINGS: Rotator Cuff and Biceps Tendon: Supraspinatus: There is insertional partial tearing of the anterior fibers, mid footplate attachment, measuring 3 mm in transverse, by 5 mm in AP diameter. This encompasses approximately 30 % of the footplate attachment (series 9, image 12; series 10, image 11). In addition, there is a 50% bursal surface tear near the myotendinous junction measuring approximately 13 mm in transverse by 10 mm in AP diameter (series 9, image 13; series 10, image 14). There is diffuse increased signal throughout the tendon consistent with tendinopathy. There is no full-thickness tear or tendinous retraction is evident. Normal muscle belly. Infraspinatus: There is increased intrasubstance signal and thickening of the distal tendon consistent with tendinopathy. There is no definite discrete tear identified. Normal muscle belly. Subscapularis: No discrete tearing identified. There is mildly increased signal of the mid aspect of the tendon with mild thickening consistent with tendinopathy. Normal muscle belly. Teres Minor: Intact and normal in signal. Normal muscle belly. Biceps Long Head: Normally located within the bicipital groove. Normal morphology. The tendon within the rotator interval is mildly increased signal without discrete tear, suggesting tendinopathy. The anchor appears intact. AC Joint and Acromiohumeral Arch: There is moderate superior surface and undersurface spurring of the AC joint, with mild periarticular edema and joint capsular distention. There is mild mass effect upon the supraspinatus outlet superiorly. There is a type II acromion. There is mild narrowing of the subacromial space to approximately 6 mm at the level of the supraspinatus tendon. Glenohumeral Joint and Labrum: There is mildly increased joint fluid. There are no full-thickness cartilaginous defects or regions of subchondral bone plate edema. Glenoid cartilage appears intact. There is irregular signal throughout the anterior superior labrum, mildly undercutting the bicipital anchor, spanning the 12-1 o'clock axis of the glenoid, suspicious for superior labral tear. The anterior, posterior, and inferior labrum appear intact and grossly. The joint capsule appears intact. The humeral ligaments appear intact without thickening. Osseous Structures: There is no gross bone marrow edema to suggest fracture or bone contusion. There is mild edema abutting the greater tuberosity at the rotator cuff attachment, likely reflecting stress reaction. Spino-glenoid Notch: Normal. Quadrilateral Space: Normal. Other: There is moderate edema and fluid signal within the subacromial/subdeltoid bursa. MR/MR shoulder RT wo con IMPRESSION: 1. There is partial intrasubstance insertional tearing of the supraspinatus tendon involving the mid aspect of the footplate attachment. In addition, there is approximately 50% bursal surface tear of the critical zone, anterior tendon, extending to the myotendinous junction. There is associated tendinopathy of the tendon. 2. Infraspinatus tendon demonstrate increased signal with mild thickening, without definite discrete tear. Findings suggest tendinopathy. 3. No definite tearing of the subscapularis or teres minor tendon. There is mild tendinopathy of the subscapularis tendon. 4. There is spurring of the AC joint superiorly and inferiorly, with mild to moderate supraspinatus outlet impingement. Narrowing of the subacromial space to 6 mm at this level. 5. There is mild degenerative arthritis in the glenohumeral joint. 6. There are findings highly suggestive of superior labral tearing. 7. There is moderate subacromial/subdeltoid bursitis. Electronically signed by: Refugio Llamas MD 10/17/2024 02:09 PM EDT
== END 2024-10-14 18:18 | disposition home or self-care (01) ==
LOC: HO.MRI 18:17
PROVIDERS: PCP Family Medicine; Visit Provider Family Medicine
DX: M54.2 Cervicalgia (principal); M25.511 Pain in right shoulder
CPT/HCPCS: 73221

== ENCOUNTER → 2024-10-14 18:17 | Outpatient (BNV) | payer MEDICAID, SELFPAY | PROVIDERS: PCP Family Medicine; Visit Provider Radiology Diagnostic Radiology | DX: M75.111 Incomplete rotator cuff tear or rupture of right shoulder, not specified as traumatic (principal); M75.51 Bursitis of right shoulder | CPT/HCPCS: 73221 ==

== ENCOUNTER 2024-12-15 12:53 | Outpatient (AMB) | payer MEDICAID, SELFPAY ==
--- NOTE | 2024-12-15 12:56 | A.OFFVIS_ITS ---
Vital Signs 12/15/24 13:04 Height 5 ft 3 in Weight 147 lb BMI 26.0 Intake Visit Reasons: Right shoulder pain and weakness Intake Note: Arin is a 53 year old right hand dominant female who presents with complaints of progressively worsening right shoulder pain and weakness. The patient describes her pain as sharp in nature. Her symptoms have gotten worse over the last year. She has failed the last 6 weeks of conservative treatment which has included Tylenol, anti-inflammatory medicines, physical therapy exercises and a home exercise program. The patient reports difficulty lifting her right hand above shoulder height. Allergies penicillin V Allergy (Unknown, Unverified 12/15/24 13:02) anaphylaxis, swelling of the face Penicillins (PENICILLINS) Allergy (Unknown, Unverified 12/15/24 13:02) RASH Sulfa (Sulfonamide Antibiotics) Allergy (Unknown, Unverified 12/15/24 13:02) anaphylaxis, swelling of the face sulfamethoxazole (From BACTRIM) Allergy (Unknown, Unverified 12/15/24 13:02) RASH trimethoprim (From BACTRIM) Allergy (Unknown, Unverified 12/15/24 13:02) RASH Medication List - Last Reconciled 12/15/24 by Gopal Rae MD diclofenac potassium 50 mg PO DAILY [facility] Medical History Abscess of right buttock Physical Exam Vital Signs: BMI result Body Mass Index 26.0 Const Other: Well-nourished well-developed very friendly female awake alert and oriented x3 in no acute distress Extrem Other: Right shoulder examination shows decreased range of motion when compared to her left shoulder, 4/5 strength with supraspinatus testing, positive impingement signs, tenderness over her acromioclavicular joint, no instability Results Reviewed Results Reviewed: MRI of the patient's right shoulder show severe acromioclavicular joint narrowing, a type 2 acromion, a full-thickness tear of the supraspinatus tendon Assessment & Plan Assessment & Plan (1) Rotator cuff insufficiency of right shoulder: Code(s): M25.311 - Other instability, right shoulder Category: Medical Plan Ms. Siobhan Aguilar presents with progressively worsening right shoulder pain and weakness due to impingement syndrome, acromioclavicular joint arthritis and a full-thickness rotator cuff tear. I had a lengthy discussion with the patient regarding the treatment options. At this point she has failed continued non operative treatments. The risks and benefits of right shoulder surgery were discussed at length with the patient. The patient wishes to proceed with surgery. Surgery will involve right shoulder arthroscopic distal clavicle excision, right shoulder arthroscopic acromioplasty and right shoulder mini open rotator cuff repair. The patient will be scheduled for next available date. She will follow-up as instructed. Feel free to call me at any time should questions regarding her orthopedic management arise. I spent 22 minutes in reviewing the patient's records and imaging studies, seeing the patient and documenting in the medical record. Coding Level of Care Code Est Pt Level 3 (36780) Complex EM visit Add On G2211 Diagnoses Rotator cuff insufficiency of right shoulder M25.311
--- OUTSIDE RECORDS SUMMARY | 2024-12-15 13:00 | XMS_ITS | Encounter Summary ---
Author Organization [facility] Address [address] [facility] [address] [place] [address] Care Team Providers Care Offset Pressman Name Role Phone Nedra Bob Primary Care Provider [phone] Hortensia Iraheta MD Primary Care Provider + Reason for Visit * Reason Comments Med Refill Encounter Details Date Type Department Care Team (Late st Contact Info) Description 10/04/2022 Refill [facility] MED & PEDS [address] [place] [address] Nedra Bob FNP [address] [facility] [place] [address] Idiopathic gout, unspecified chronicity, unspecified site Social [...] documented in this encounter Plan of Treatment Upcoming Encounters Date Type Department Care Team (Late st Contact Info) Description 01/19/2025 9:45 AM EDT Office Visit [facility] MEDICINE [address] [place] [address] Hortensia Iraheta MD [address] [place] [address] documented as of this encounter Visit Diagnoses Diagnosis Idiopathic gout, unspecified chronicity, unspecified site documented in this encounter Care Teams Offset Pressman Relationship Specialty Start Date End Date Nedra Bob FNP [address] [place] [phone] PCP - General Family Medicine 03/21/22 02/15/24 Hortensia Iraheta MD [address] [place] [id number] PCP - General Internal Medicine 02/16/24 documented as of this encounter
[2024-12-15 13:04] VITALS: BMI 26.0
== END 2024-12-15 13:18 | disposition home or self-care (01) ==
LOC: HO.HOS 12:54
PROVIDERS: PCP Family Medicine; Visit Provider Orthopaedic Surgery
DX: M25.311 Other instability, right shoulder (principal)
CPT/HCPCS: 99214

== ENCOUNTER → 2024-12-15 12:53 | Outpatient (BNVA) | payer MEDICAID, SELFPAY | PROVIDERS: PCP Family Medicine; Visit Provider Orthopaedic Surgery | DX: M25.511 Pain in right shoulder (principal); R53.1 Weakness; M25.311 Other instability, right shoulder | CPT/HCPCS: 99212 ==

== ENCOUNTER 2025-01-30 08:06 | Outpatient (REF) | payer MEDICAID, SELFPAY ==
[2025-01-30 11:57] LABS: Alanine Aminotransferase 16 U/L (0-31); Albumin Level 4.1 g/dL (3.5-5.0); Alkaline Phosphatase 86 U/L (39-117); Anion Gap 15 (12-20); Aspartate Amino Transferase 25 U/L (5-31); Blood Urea Nitrogen 18 mg/dL (9-16); Calcium 9.7 mg/dL (8.4-10.2); Carbon Dioxide 28 mmol/L (22-29); Chloride 105 mmol/L (96-108); Cholesterol 200 mg/dL (<200); Estimated Glomerular Filt Rate > 60; HDL Cholesterol 58 mg/dL (>40); Potassium 4.5 mmol/L (3.3-5.1); Sodium 143 mmol/L (135-145); Total Protein 7.0 g/dL (6.5-8.0); Triglycerides 199 mg/dL (<150)
[2025-01-30 12:04] LABS: HBS Num1 1.22 mIU/mL (0-7.99); HBc Num1 0.11 S/CO (0.00-0.79); HBsAGNum1 0.42 S/CO (0.00-0.99); HIV Num 1 0.05 S/CO (0.00-0.99); Hepatitis A Antibody IgM 0.15 Index (0-0.79); Hepatitis B Surface Antigen Negative (Negative); Syphilis Screen Nonreactive (Nonreactive); ~HepC Num1 0.09 S/CO (0.00-0.79); ~Hepatitis A Antibody IgM Nonreactive (Nonreactive); ~Hepatitis B Surface Antibody NONREACTIVE (Nonreactive); ~Hepatitis C Antibody Nonreactive (Nonreactive)
[2025-01-30 12:13] LABS: Hemoglobin A1C 166.0782 umol/L; Total Hemoglobin (HGBA1C) 4896.2301 umol/L
[2025-01-30 12:40] LABS: Reflex LDLD? No
== END 2025-01-30 08:07 | disposition home or self-care (01) ==
LOC: HO.HHCL 08:06
PROVIDERS: PCP Family Medicine; Visit Provider Internal Medicine
DX: Z00.00 Encounter for general adult medical examination without abnormal findings (principal); E55.9 Vitamin D deficiency, unspecified; E66.3 Overweight; Z11.3 Encounter for screening for infections with a predominantly sexual mode of transmission; Z11.59 Encounter for screening for other viral diseases; Z11.4 Encounter for screening for human immunodeficiency virus [HIV]
CPT/HCPCS: 36415; 80053; 80061; 82306; 83036; 84443; 86704; 86706; 86709; 86780; 86803; 87340; 87389

== ENCOUNTER 2025-02-24 06:47 | Day surgery (SDC) | payer MEDICAID, SELFPAY ==
--- OUTSIDE RECORDS SUMMARY | 2025-01-05 09:54 | XMS_ITS | Encounter Summary ---
Author Organization [facility] Address [address] [facility] [address] [place] [address] Care Team Providers Care Real Estate Clerk Name Role Phone Nedra Bob Primary Care Provider [phone] Hortensia Iraheta MD Primary Care Provider + Reason for Visit * Reason Comments Med Refill Encounter Details Date Type Department Care Team (Late st Contact Info) Description 10/04/2022 Refill [facility] MED & PEDS [address] [place] [address] Nedra Bob FNP [address] [facility] [place] [address] Idiopathic gout, unspecified chronicity, unspecified site Social [...] Description 01/19/2025 9:45 AM EDT Office Visit [facility] MEDICINE [address] [place] [phone] Hortensia Iraheta MD [address] [place] [address] [phone] 02/10/2025 10:15 AM EDT Office Visit [address] [phone] Lucia Roy MD [address] [place] [address] [phone] documented as of this encounter Visit Diagnoses Diagnosis Idiopathic gout, unspecified chronicity, unspecified site documented in this encounter Care Teams Real Estate Clerk Relationship Specialty Start Date End Date Nedra Bob FNP [address] [place] [phone] PCP - General Family Medicine 03/21/22 02/15/24 Hortensia Iraheta MD [address] [place] [id number] PCP - General Internal Medicine 02/16/24 documented as of this encounter
[2025-02-09 12:17] VITALS: BMI 26.6
--- NOTE | 2025-02-22 10:46 | HO.ANESPROP2 ---
Documented by User: Pamela Thomas NP 02/22/25 10:46 HPI - Anesthesia Eval Consult details Narrative: 54yo F for Right Shoulder Arthroscopy,distal clavicle excision,acromioplasty with Mini Open RCR Medically optimized per PCP PMFSH Active Problems Active Problems: All Active Problems Rotator cuff insufficiency of right shoulder (Acute) Polyarthritis (Acute) Mixed incontinence (Acute) High cholesterol (Acute) GERD (gastroesophageal reflux disease) (Acute) Asthma (Acute) Lateral epicondylitis, right elbow (Acute) Past Medical History Medical History Gout Anxiety Seasonal allergies Shoulder pain, right GERD (gastroesophageal reflux disease) Asthma Abscess of right buttock Surgical History Surgical History Hx of tubal ligation Social History Social History Household Members: None Housing: Apartment Smoked in Last 30 Days: No Use of substances other than those prescribed or required for medical reasons: No Have you been hit, kicked, punched, or otherwise hurt by someone within the past year? If so, by whom?: No Are you DNR?: No Advance Directives: No Advance Directives Information Provided: Yes Advance Directives on File: No Poor oral hygiene: Yes (full dentures) Meds Allergies Allergy/AdvReac Type Severity Reaction Status Date / Time penicillin V Allergy Unknown anaphylaxis, Verified 02/24/25 06:56 swelling of the face Penicillins (PENICILLINS) Allergy Unknown Anaphylaxis Verified 02/24/25 06:56 Sulfa (Sulfonamide Allergy Unknown anaphylaxis, Verified 02/24/25 06:56 Antibiotics) swelling of the face sulfamethoxazole (From Allergy Unknown Anaphylaxis Verified 02/24/25 06:56 BACTRIM) trimethoprim (From BACTRIM) Allergy Unknown Anaphylaxis Verified 02/24/25 06:56 Home Medications ?Medication ?Instructions ?Recorded ?Confirmed ?Last Taken ?Type diclofenac potassium 50 mg tablet 50 mg PO DAILY 08/20/21 02/07/25 02/22/25 History acetaminophen 650 mg 650 mg PO Q8H PRN mild pain 02/07/25 02/07/25 Unknown History tablet,extended release albuterol sulfate 90 mcg/actuation 2 puff inhalation Q4H PRN wheezing 02/07/25 02/07/25 Unknown History aerosol inhaler (Ventolin HFA) allopurinol 100 mg tablet 100 mg PO DAILY 02/07/25 02/07/25 Unknown History baclofen 10 mg tablet 10 mg PO TID PRN muscle spasm 02/07/25 02/07/25 Unknown History diphenhydramine HCl 25 mg capsule 25 mg PO Q6H PRN allergies 02/07/25 02/07/25 Unknown History (Banophen) famotidine 40 mg tablet 40 mg PO BEDTIME 02/07/25 02/07/25 Unknown History loratadine 10 mg tablet 10 mg PO DAILY PRN allergies 02/07/25 02/07/25 Unknown History lorazepam 0.5 mg tablet 0.5 mg PO ONCE 02/07/25 02/07/25 Unknown History naproxen 500 mg tablet 500 mg PO mild pain 02/07/25 02/22/25 History Exam Height,Weight and Vital Signs: Height 5 ft 3 in Weight 68.039 kg Pertinent Lab Results Pertinent Lab Results: Laboratory Tests 01/30/25 08:12 Sodium 143 Potassium 4.5 Chloride 105 Carbon Dioxide 28 BUN 18 H Creatinine 0.75 Narrative Narrative: EKG 01/2025 NSR @ 64 Assessment and Plan Assessment Anesthesia Assessment: Chart Reviewed Documented by User: Angela Orozco MD 02/24/25 07:28 [facility] Past Medical History Medical History Gout Anxiety Seasonal allergies Shoulder pain, right GERD (gastroesophageal reflux disease) Asthma Abscess of right buttock Family History Family history of problems with anesthesia: No Surgical History Surgical History Hx of tubal ligation History of Problems with Anesthesia: No Social History Social History Household Members: None Housing: Apartment Smoked in Last 30 Days: No Use of substances other than those prescribed or required for medical reasons: No Have you been hit, kicked, punched, or otherwise hurt by someone within the past year? If so, by whom?: No Are you DNR?: No Advance Directives: No Advance Directives Information Provided: Yes Advance Directives on File: No Poor oral hygiene: Yes (full dentures) Meds Allergies Allergy/AdvReac Type Severity Reaction Status Date / Time penicillin V Allergy Unknown anaphylaxis, Verified 02/24/25 06:56 swelling of the face Penicillins (PENICILLINS) Allergy Unknown Anaphylaxis Verified 02/24/25 06:56 Sulfa (Sulfonamide Allergy Unknown anaphylaxis, Verified 02/24/25 06:56 Antibiotics) swelling of the face sulfamethoxazole (From Allergy Unknown Anaphylaxis Verified 02/24/25 06:56 BACTRIM) trimethoprim (From BACTRIM) Allergy Unknown Anaphylaxis Verified 02/24/25 06:56 Home Medications ?Medication ?Instructions ?Recorded ?Confirmed ?Last Taken ?Type diclofenac potassium 50 mg tablet 50 mg PO DAILY 08/20/21 02/07/25 02/22/25 History acetaminophen 650 mg 650 mg PO Q8H PRN mild pain 02/07/25 02/07/25 Unknown History tablet,extended release albuterol sulfate 90 mcg/actuation 2 puff inhalation Q4H PRN wheezing 02/07/25 02/07/25 Unknown History aerosol inhaler (Ventolin HFA) allopurinol 100 mg tablet 100 mg PO DAILY 02/07/25 02/07/25 Unknown History baclofen 10 mg tablet 10 mg PO TID PRN muscle spasm 02/07/25 02/07/25 Unknown History diphenhydramine HCl 25 mg capsule 25 mg PO Q6H PRN allergies 02/07/25 02/07/25 Unknown History (Banophen) famotidine 40 mg tablet 40 mg PO BEDTIME 02/07/25 02/07/25 Unknown History loratadine 10 mg tablet 10 mg PO DAILY PRN allergies 02/07/25 02/07/25 Unknown History lorazepam 0.5 mg tablet 0.5 mg PO ONCE 02/07/25 02/07/25 Unknown History naproxen 500 mg tablet 500 mg PO mild pain 02/07/25 02/22/25 History Exam Airway Mallampati Class: II TM Dist: >3cm Neck ROM: Full Heart: rrr Lungs: cta Assessment and Plan Assessment Anesthesia Assessment: Anesthesia Plan Discussed Final Anesthetic Review Family History of Problems with Anesthesia: No History of Problems with Anesthesia: No NPO: Yes ASA Class: II Final Preanesthetic Review: No Changes in Pt Med Stat, Meds/Allgs Chart Reviewed, Consent Obtained/Reviewed and Anes Risks/Benef Reviewed Patient Risk: Low Procedure Risk: Intermediate Anesthetic Plan Anesthetic Plan: GA, Regional Block and Agree w/ Assess. and Plan Disposition: Standard PACU
[2025-02-24 06:49] VITALS: BMI 26.2
[2025-02-24 07:13] VITALS: BP 136/76; PULSE 77; RESP 15; TEMP 36.4; O2SAT 98
[2025-02-24] MEDS: Lactated Ringers 1,000 ML 100 ML IVCONT (07:20)
[2025-02-24 10:32] VITALS: BP 132/69; PULSE 82; RESP 16; TEMP 36.1; O2SAT 99
[2025-02-24 10:35] VITALS: BP 109/56; PULSE 74; RESP 16; O2SAT 99
--- NOTE | 2025-02-24 10:37 | P.BOP_ITS ---
Brief Operative Note Date of Service: 02/24/25 Pre-op diagnosis: Right shoulder impingement syndrome, right shoulder acromioclavicular joint arthritis, possible right shoulder rotator cuff tear Post-op diagnosis: other (Right shoulder impingement syndrome, right shoulder acromioclavicular joint arthritis, right shoulder adhesive capsulitis) Procedure: Right shoulder arthroscopic distal clavicle excision, right shoulder arthroscopic acromioplasty, right shoulder arthroscopic anterior capsular release, right shoulder manipulation under anesthesia Implants: none Surgeon: Gopal Rae MD Anesthesia: GETA and regional Was an Equipment Maintenance Supervisor used for this Procedure?: No Estimated blood loss (mL): 10 Pathology: none sent Condition: stable Disposition: PACU
--- NOTE | 2025-02-24 10:38 | W.PM.OPN ---
Operative Note Operative Note Date of Service: 02/24/25 Narrative: After the patient was identified as Arin Aguilar and her right shoulder was initialed by myself the patient was brought to the holding area where a right shoulder interscalene regional block was performed by the anesthesiologist in routine fashion. The patient was then brought to the operating room where general anesthesia was induced by the anesthesiologist in routine fashion. Because of the patient's allergy to penicillin she was given IV clindamycin preoperatively for infection prophylaxis. Examination under anesthesia of the patient's right shoulder showed decreased passive range of motion when compared to the left shoulder. The patient's right shoulder had passive forward flexion to 130 degrees compared to 170 degrees, external rotation to 40 degrees compared to 70 degrees, and internal rotation to 50 degrees compared to 60 degrees. The patient was gently positioned in the beach chair position with all bony prominences well padded. The patient's right shoulder region and upper extremity were prepped and draped in sterile fashion. A formal time-out was completed. A #11 scalpel blade was used to make a posterior portal 2 cm inferior and 1 cm medial to the posterolateral corner of the acromion. Blunt trocar technique was used to enter the glenohumeral joint in routine fashion. An anterior portal was made just lateral to the coracoid process after proper positioning was confirmed using a spinal needle. Diagnostic arthroscopy showed minimal degenerative changes of the glenoid and humeral head articular surfaces. There was no evidence of rotator cuff tearing. There was no evidence of injury to the biceps tendon or its insertion onto the glenoid. There was inflammation of the anterior joint capsule consistent with adhesive capsulitis. The ArthroCare Wand was then used to perform an anterior capsular release between the inferior border of the biceps tendon and the superior border of the subscapularis tendon. The arthroscope was then placed from the posterior portal into the subacromial space. A lateral portal was made 2 fingerbreadths lateral to the anterior lateral corner of the acromion. The ArthroCare Wand was used to ablate soft tissues along the undersurface of the acromion as well as to excise the coracoacromial ligament. There was a sharp spur along the undersurface of the acromion which was removed using the hooded bur. The arthroscope was then placed into the lateral portal and the acromioplasty was completed with the bur in the posterior portal using the posterior aspect of the acromion as a cutting block. The ArthroCare Wand was then brought in through the anterior portal and was used to ablate soft tissues along the acromioclavicular joint and distal clavicle. The posterior and superior ligamentous structures were left intact. A distal clavicle excision of 8 mm was performed using the fluted bur. Any remaining bursal tissue was removed using the arthroscopic shaver. The subacromial space was irrigated and then drained. All arthroscopic instruments were removed. A gentle manipulation under anesthesia was then performed. Full passive range of motion was easily attained. The 3 portals were closed with 3-0 nylon interrupted suture. The subacromial space was injected with Marcaine. Dry sterile dressing was placed over all incisions. The patient's right upper extremity was placed into a sling. The patient was awoken and extubated in the operating room. The patient was transferred to the recovery room in stable condition.
[2025-02-24 10:40] VITALS: BP 115/62; PULSE 75; RESP 16; O2SAT 99
[2025-02-24 10:45] VITALS: BP 130/73; PULSE 74; RESP 16; O2SAT 99
[2025-02-24 11:00] VITALS: BP 132/66; PULSE 79; RESP 16; TEMP 36.1; O2SAT 99
== END 2025-02-24 11:30 | disposition home or self-care (01) ==
PROVIDERS: PCP Family Medicine; Visit Provider Orthopaedic Surgery
PROC: (CPT 29824; principal; 2025-02-24 09:00)
DX: M75.101 Unspecified rotator cuff tear or rupture of right shoulder, not specified as traumatic (principal); M75.41 Impingement syndrome of right shoulder; M75.01 Adhesive capsulitis of right shoulder; M19.011 Primary osteoarthritis, right shoulder; Z88.0 Allergy status to penicillin; Z88.2 Allergy status to sulfonamides
CPT/HCPCS: 29824; 29825; 29826; J0131; J0165; J0665; J0736; J1100; J2003; J2250; J2405; J2704; J2795

== ENCOUNTER → 2025-02-24 06:47 | Outpatient (BNV) | payer MEDICAID, SELFPAY | PROVIDERS: PCP Family Medicine; Visit Provider Orthopaedic Surgery | DX: M75.41 Impingement syndrome of right shoulder (principal); M19.011 Primary osteoarthritis, right shoulder; M75.01 Adhesive capsulitis of right shoulder | CPT/HCPCS: 29824; 29826 ==

== ENCOUNTER 2025-03-09 13:47 | Outpatient (AMB) | payer MEDICAID, SELFPAY ==
--- NOTE | 2025-03-09 14:03 | MHC.OFFVIS ---
Intake Visit Reasons: PO RT shoulder 02/24/25 Intake Note: Arin 54 yr old woman presents with complaints of moderate discomfort in her right shoulder after undergoing right shoulder arthroscopic surgery on 02/24/2025. She does take oxycodone as needed for her discomfort which gives her fairly good relief. She has been doing gentle stretching exercises on her own. She denies any fevers or chills. Allergies penicillin V Allergy (Unknown, Verified 03/09/25 14:06) anaphylaxis, swelling of the face Penicillins (PENICILLINS) Allergy (Unknown, Verified 03/09/25 14:06) Anaphylaxis Sulfa (Sulfonamide Antibiotics) Allergy (Unknown, Verified 03/09/25 14:06) anaphylaxis, swelling of the face sulfamethoxazole (From BACTRIM) Allergy (Unknown, Verified 03/09/25 14:06) Anaphylaxis trimethoprim (From BACTRIM) Allergy (Unknown, Verified 03/09/25 14:06) Anaphylaxis Medication List - Last Reviewed 03/09/25 by BECKY Nichole acetaminophen ER 650 mg PO Q8H PRN albuterol sulfate 90 mcg/actuation (Ventolin HFA) 2 puffs inhalation Q4H PRN allopurinol 100 mg PO DAILY baclofen 10 mg PO TID PRN diclofenac potassium 50 mg PO DAILY diphenhydramine HCl (Banophen) 25 mg PO Q6H PRN famotidine 40 mg PO BEDTIME loratadine 10 mg PO DAILY PRN lorazepam 0.5 mg PO ONCE naproxen 500 mg PO oxycodone 10 mg (2 x 5 mg) PO Q4H PRN PFSH Medical History Gout Anxiety Seasonal allergies Shoulder pain, right GERD (gastroesophageal reflux disease) Asthma Abscess of right buttock Surgical History Hx of tubal ligation Social History Household Members: None Housing: Apartment Are you a primary director of primary care to a significant other at home: No Do you presently have visiting nurse or other home services: No Patient Tobacco Use Status: Former Tobacco user Tobacco use type: Cigarette Physical Exam Extrem Other: Right shoulder examination shows that the surgical incisions are healing well, mild to moderate discomfort with gentle range of motion, no instability Assessment & Plan Assessment & Plan (1) Right shoulder pain: Code(s): M25.511 - Pain in right shoulder Category: Medical Plan Ms. Siobhan Aguilar is doing fairly well after undergoing right shoulder arthroscopic surgery on 02/24/2025. Her sutures were removed and Steri-Strips placed over her incisions. I did give her a prescription go to formal physical therapy here at [facility]. I also refilled her prescription for oxycodone. I will clear her to return to work once her discomfort and strength have improved. She will contact me prior to her follow-up appointment in 2 months should any questions or concerns arise. Orders: Orders PT Evaluation and Treatment 03/10/25 M25.511 - Pain in right shoulder Medications: New oxycodone Partial Fill upon patient request. 5 mg PO Q6H PRN 35 tabs 0RF pain Coding Level of Care Code Global (23170) Diagnoses Right shoulder pain M25.511
--- OUTSIDE RECORDS SUMMARY | 2025-03-09 18:20 | XMS_ITS | Encounter Summary ---
Author Organization [facility] Address [address] [facility] [address] [place] [address] Care Team Providers Care Alley Worker Name Role Phone Hortensia Iraheta MD Primary Care Provider + Reason for Visit * Reason Comments Med Refill Encounter Details Date Type Department Care Team ([facility] st Contact Info) Description 11/24/2024 Refill [facility] MEDICINE [address] [place], [place] [phone] Hortensia Iraheta MD [address] [place], [place] [phone] Idiopathic gout, unspecified chronicity, unspecified site Social [...] as of this encounter Plan of Treatment Upcoming Encounters Date Type Department Care Team (Late st Contact Info) Description 04/03/2025 9:45 AM EDT Procedure Visit [facility] MEDICINE [address] [place] [address] Hortensia Iraheta MD [address] [place] [address] documented as of this encounter Visit Diagnoses Diagnosis Idiopathic gout, unspecified chronicity, unspecified site documented in this encounter Additional Health Concerns Assessment Noted Time PHQ-9 Depression Total Score: 3 10/23/19 23 2:00 PM EDT documented as of this encounter Care Teams Alley Worker Relationship Specialty Start Date End Date Hortensia Iraheta MD [address] [place] [address] PCP - General Internal Medicine 02/16/24 documented as of this encounter
--- OUTSIDE RECORDS SUMMARY | 2025-03-09 18:20 | XMS_ITS | Clinical Summary ---
Author Organization [employer] Address [address] [facility] 7[address] [place] [address] Care Team Providers Care Security Officer Name Role Phone Hortensia Iraheta MD Primary Care Provider + Allergies Active Allergy Reactions Criticality Noted Date Comments Methylprednisolone 10/13/2024 Facial erythema and generalized body burning sensation Penicillin G 04/01/2012 Sulfamethoxazole 04/01/2012 Trimethoprim 04/01/2012 Medications cyanocobalamin (Vitamin B-12) 1000 MCG tablet TAKE 1 TABLET (1,000 MCG) BY MOUTH IN THE MORNING 90 tablet 1 07/13/19 24 Active Ventolin HFA 108 (90 Base) MCG/ACT inhaler INHALE 2 PUFFS EVERY 4 HOURS IF NEEDED FOR WHEEZING. 18 g 3 02/09/20 24 Active baclofen (Lioresal) 10 MG tablet TAKE [...] mild pain. 30 tablet 1 10/11/19 25 026 Active LORazepam (Ativan) 0.5 MG tabletIndicatio ns:Neck and shoulder pain Take one tablet PO once 30 minutes prior to MRI 1 tablet 10/11/19 25 Active loratadine (Claritin) 10 MG tablet TAKE 1 TABLET BY MOUTH EVERY DAY NEEDED FOR ALLERGY 90 tablet 10/14/19 25 Active allopurinol (Zyloprim) 100 MG tabletIndicatio ns:Idiopathic gout, unspecified chronicity, unspecified site TAKE 1 TABLET BY MOUTH EVERY DAY 90 tablet 10/14/19 25 Active acetaminophen (Tylenol 8 Hour) 650 MG ER tablet Take 1 tablet (650 mg) by mouth every 8 (eight) hours if needed for mild pain. 60 tablet 1 01/24/20 25 Active famotidine (Pepcid) 40 MG tablet Take 1 tablet (40 mg) by mouth at bedtime. 90 tablet 02/25/20 25 Active celecoxib (CeleBREX) 200 MG capsule TAKE 1 CAPSULE BY MOUTH EVERY DAY 30 capsule 02/29/20 25 Active famotidine (Pepcid) 40 MG tablet TAKE 1 TABLET BY MOUTH EVERYDAY AT BEDTIME 90 tablet 11/01/19 25 025 Discontinued(Re order (will not trigger notification to Pharmacy)) celecoxib (CeleBREX) 200 MG capsule Take 1 capsule (200 mg) by mouth Once per day. 30 capsule 01/24/20 25 025 Discontinued Active Problems Problem Noted Date Diagnosed Date Preop examination 02/10/2025 Assessment & Plan (02/10/2025 1:04 PM EDT): RCRI score is 0 which means 0.5% risk I advise n.p.o. after midnight before the procedure Surgery should proceed as scheduled EKG done at office normal sinus rhythm heart rate 64 Labs were reviewed with patient Screening mammogram, encounter for 01/23/2025 Assessment & Plan (01/23/2025 4:44 PM EDT): Order mammogram Rotator cuff tendinitis, right 01/23/2025 Assessment & Plan (01/23/2025 4:48 PM EDT): Failed PT and a steroid injection, awaiting rotator cuff surgery/arthroscopy. She should not have any contraindication for planned procedure, medication will be adjusted per anesthesia and her conditions are optimally controlled at this time. She has preop clearance evaluation 2 weeks prior to surgery We discussed results of MRI and other potential treatments including acupuncture, NSAIDs. Will start Celebrex daily and take Tylenol as needed breakthrough pain I recommended her to request FMLA with her employer and follow-up with orthopedics to allow for recovery and rehabilitation Overweight 01/23/2025 Assessment & Plan (01/23/2025 4:44 PM EDT): Discussed re weight reduction options including exercise, life style modifications, diet. Recommended to decrease soda and sugary beverage consumption, increase protein intake with meals (at least 1 portion of protein with each meal) to assist with satiety, increase dietary fiber Recommended at least 150 min/week of moderate intensity exercise. Lateral epicondylitis of left elbow 10/09/2022 Vitamin D deficiency 07/15/2017 Assessment & Plan (01/23/2025 4:44 PM EDT): She is on vitamin D, recommended to increase outdoor exercise and sun exposure for at least 50 minutes daily. Order vitamin D levels Mild intermittent asthma 09/26/2015 Assessment & Plan (01/23/2025 4:46 PM EDT): Doing well on albuterol as needed, mostly during the wintertime She is a non-smoker, will follow-up on immunizations at next visit, may need PFTs Resolved Problems Problem Noted Date Diagnosed Date Resolved Date Contact with and (suspected) exposure to covid-19 03/26/2023 01/23/2025 Acute cough 03/26/2023 01/23/2025 COVID-19 03/26/2023 01/23/2025 Assessment & Plan (03/26/2023 12:30 PM EDT): [...] worsen or do not continue to improve Pain in elbow 10/09/2022 01/23/2025 Encounters Date Type Department Care Team Description 02/27/[address] [phone] Hortensia Iraheta MD Appointment Request 02/27/[address] [address] Hortensia Iraheta MD 02/24/2025 Refill [facility] [address] [place] [address] Hortensia Iraheta MD 02/10/2025 10:15 AM EDT Office Visit [address] [address] Lucia Roy MD Preop examination 02/10/[address] [address] Hortensia Iraheta MD Preop fax 02/10/2025 Travel 02/08/[address] [address] Hortensia Iraheta MD chart prep 01/23/2025 10:00 AM EDT Office Visit [address] [address] Hortensia Iraheta MD Rotator cuff tendinitis, right (Primary Dx); Mild intermittent asthma without complication; Vitamin D deficiency; Overweight; Screening mammogram, encounter for; Dietary counseling; Exercise counseling; Preventative health care 01/23/2025 Travel 01/20/2025 Telephone [facility] [address] [place] [phone] Hortensia Iraheta MD Chart Prep 01/11/2025 Patient Outreach [address] [address] Hortensia Iraheta MD Pre-visit Planning (SDOH screening negative and tobacco screening negative) 01/06/[address] [address] Hortensia Iraheta MD 12/22/[address] [place] [address] Hortensia Iraheta MD Pre-op appointment from Last 3 Months Immunizations Immunization Administration Dates Next Due MMR 10/15/1994 TD (adult), 2 Lf tetanus tox oid, preservative free, adsorbed 04/10/2008 Tdap 04/25/2016 Family History Medical History Relation Name Comments Diabetes type II Father Lymphoma Mother Relation Name Status Comments Father Mother Social History Tobacco Use Types Packs/Day Years Used Date Smoking Tobacco: Former Cigarettes Q uit: 2018 Passive Smoke Exposure: Past Smokeless Tobacco: Never Tobacco Cessation:Counseling Given: Not Answered Alcohol Use Standard Drinks/Week Comments Yes 0 (1 standard drink = 0.6 oz pur e alcohol) occasional Depression Answer Date Recorded Patient Health Questionnaire-9 Score 1 02/10/2025 Patient Health Questionnaire-9 Score 1 02/10/2025 Last PHQ-9: Questionnaire Data Not on file 0 02/10/2025 Housing Stability Answer Date Recorded What is your housing situation today? I have maria a walters 01/11/[address] you li ve. Do you have problems with any of the following? None of the above 01/11/2025 Food Insecurity Answer Date Recorded Within the past 12 months, y ou worried that your food would run out before you got money to buy more: Never True 01/11/2025 Within the past 12 months,th e food you bought just didn't last and you didn't have enough money to get more: Never True Transportation Answer Date Recorded In the past 12 months, has l ack of transportation kept you from medical appts, meetings, work or from getting things needed for daily living? No 01/11/2025 Utilities Answer Date Recorded In the past 12 months, has t he electric, gas, oil or water company threatened to shut off services in your home? No 01/11/2025 Depression Answer Date Recorded Patient Health Questionnaire-2 Score 0 02/10/2025 Internet Access Answer Date Recorded Internet Access Q1 Yes 01/11/2025 Internet Access Q2 Not on file 01/11/2025 Comments Unknown Sex and Gender Information Value Date Recorded Sex Assigned at Female 04/14/2022 10:15 AM EDT Legal Sex Female 10:15 AM EDT Gender Identity Female 04/14/2022 10:15 AM EDT Sexual Orientation Choose not to disclose 2021 10:15 AM EDT Last Filed Vital Signs Vital Sign Reading Time Taken Comments Blood Pressure 110/62 02/10/2025 10:28 AM EDT Pulse 68 02/10/2025 10:28 AM EDT Temperature 36.3 C (97.3 F) 02/10/2025 10:28 AM EDT Respiratory Rate 20 02/10/2025 10:2 8 AM EDT Oxygen Saturation 97% 10/13/2024 3:07 PM EDT Inhaled Oxygen Concentration - - Weight 69.3 kg (152 lb 12.8 oz) 025 10:28 AM EDT Height 161.3 cm (5' 3.5 ) 02/10/2025 10 :28 AM EDT Body Mass Index 26.64 02/10/2025 10:28 AM EDT Plan of Treatment Upcoming Encounters Date Type Department Care Team (Late st Contact Info) Description 04/03/2025 9:45 AM EDT Procedure Visit [facility] [address] [place] [address] Hortensia Iraheta MD [address] [place] [address] Health Maintenance Due Date Last Done Comments CT Colonography 1969 Colonoscopy 1969 Colorectal Cancer Screening 1969 FIT DNA/Cologuard 1969 FIT 1969 FOBT 1969 Sigmoidoscopy 1969 Hepatitis B Vaccines (1 of 3 - 19+ 3-dose series) 1988 Pneumococcal Vaccine: 50+ Years (1 of 2 - PCV) 1988 Pap Smear 1990 Zoster Vaccines (1 of 2) 12/22/2019 Cervical Cancer Screening 02/09/2022 HPV/Cotest 02/09/2022 02/09/2017 Mammogram 10/19/2023 10/18/2021, 03/03/2019, 02/19/2018 COVID-19 Vaccine (3 - 2024-2 6 season) 2025 07/25/2021, 05/21/2021 Influenza Vaccine (#1) 2025 SDOH Screening 01/11/2026 01/11/2025 Alcohol/Substance Use Screening 02/10/2026 02/10/2025 Depression Screening 02/10/2026 02/10/2025, 02/10/2025 Disability Screening 02/10/2026 02/10/2025 Tobacco Screening 02/10/2026 02/10/2025 DTaP/Tdap/Td Vaccines (2 - T d or Tdap) 04/25/2026 04/25/2016, 04/10/2008 RSV Patients and Patients Aged 60 years or older (1 - 1-dose 75+ series) 2044 HIV Screening Completed 01/30/2025, 10/28/2022, 09/20/2021 Hepatitis C Screening Completed 01/30/2025 HIB Vaccines Aged Out No longer eligi [...] patient's age to complete this topic Meningococcal B Vaccine Aged Out No l onger eligible based on patient's age to complete [...] Procedure Name Priority Date/Time Associated Diagnosis Comments ECG 12-LEAD Routine 02/10/2025 1:03 PM EDT Preop examination HEMOGLOBIN A1C Routine 01/30/2025 8:12 AM EDT Overweight HEPATITIS PANEL, GENERAL Routine 01/30/2025 8:12 AM EDT Preventative health care SYPHILIS SCREEN Routine 01/30/2025 8:12 AM EDT Preventative health care HIV 1/2 ANTIGEN/ANTIBODY, FOURTH GENERATION W/RFL Routine 01/30/2025 8:12 AM EDT Preventative health care LIPID PANEL WITH REFLEX TO DIRECT LDL Routine 01/30/2025 8:12 AM EDT Overweight TSH W/REFLEX TO FT4 Routine 01/30/2025 8 :12 AM EDT Overweight VITAMIN D,25-OH,TOTAL,IA Routine 01/30/2025 8:12 AM EDT Vitamin D deficiency COMPREHENSIVE METABOLIC PANEL Routine 01/30/2025 8:12 AM EDT Vitamin D deficiency Overweight MAMMOGRAM GENERIC Routine 10/18/2021 10: 15 AM EDT ZZZ HISTORICAL HPV MRNA E6/E7 Routine 02/09/2017 9:55 AM EDT from Last 3 Months or Most Recently Relevant to Health Maintenance Results * ECG 12 lead (02/10/2025 1:03 PM EDT) Narrative Lucia Roy MD - 02/10/2025 1:03 PM EDT Normal sinus rhythm heart rate 64 us Lucia Gonzales MD ECG ORDERABLES Final Result * Syphilis Screen (01/30/2025 8:12 AM EDT) Syphilis Screen Nonreactive Nonreactive [facility] Blood 01/30/2025 8:12 AM EDT 01/30/2025 11:10 AM EDT us Hortensia Iraheta MD LAB BLOOD ORDERABLES Fin al Result [facility] [address] [place] [phone] * Vitamin D, 25-Hydroxy, Total, Immunoassay (01/30/2025 8:12 AM EDT) Vitamin D 25-OH Total 51.0 >30 ng/mL [facility] Comment: Health Based Reference Values*< 20 ng/mL Erjazyyji35-01 ng/mL Insufficient> 30 ng/mL Sufficient*Tom CORDON. N Engl J Med. 2007;357:266-280There is no well-established upper level of normal vitamin Dlevels. Some laboratories use 50 ng/mL as an upper limit ofnormal. However, toxicity is patient-dependent and may occurat any level. Careful correlation with the patient'spresentation is necessary and, if there is concern forvitamin D toxicity, treatment should be consideredirrespective of the serum level.Care must be taken in interpreting Vitamin D results fromdifferent laboratories and methodologies. Published datademonstrated that results from patients undergoinghemodialysis may show a negative bias when tested withvarious automated 25-OH vitamin D assays when compared toLC-MS/MS.When testing samples from patients whose predominant form ofVitamin D is Vitamin D2, such as patients receiving VitaminD2 supplementation, results that are subtherapeutic shouldbe confirmed with another method such as LC-MS/MS. Blood 01/30/2025 8:12 AM EDT 01/30/2025 11:10 AM EDT us Hortensia Iraheta MD LAB BLOOD ORDERABLES Fin al Result Performing Organization Address City/[facility]/ZIP Co de Phone Number [facility] [address] [place] [phone] * TSH with Reflex to Free T4 (01/30/2025 8:12 AM EDT) TSH reflex Free T4 2.03 0.32 - 4.0 uIU/mL [facility] Blood 01/30/2025 8:12 AM EDT 01/30/2025 11:10 AM EDT Hortensia Iraheta MD LAB BLOOD ORDERABLES Fin al Result [facility] [address] [place] [phone] * (ABNORMAL) Lipid Panel with Reflex to Direct LDL (01/30/2025 8:12 AM EDT) Triglycerides 199(H) <150 mg/dL [facility] Comment:Desirable Triglyceri de: less than 150 mg/dLBorderline High Triglyceride 150-199 mg/dLHigh Triglyceride: 200-499 mg/dLVery High Triglyceride: greater than or equal to 5OO mg/dL Cholesterol 200(H) <200 mg/dL [facility] Comment:Desirable Cholestero l: less than 200 mg/dLBorderline High Cholesterol: 200-239 mg/dLHigh Cholesterol: greater than 239 mg/dL LDL Cholesterol Calculated 103(H) <100 mg/dL [facility] Comment:Desirable LDL: less than 100 mg/dLNear Optimal/Above Optimal LDL: 110- 129 mg/dLBorderline High LDL: 130-159 mg/dLHigh LDL: 160-189 mg/dLVery High LDL: greater than or equal to 190 mg/dL HDL Cholesterol 58 >40 mg/dL [facility] Comment:Desirable HDL: great er than 40 mg/dL Note: This HDL assay may give artificially low results in patients with liver disease. Blood 01/30/2025 8:12 AM EDT 01/30/2025 11:10 AM EDT us Hortensia Iraheta MD LAB BLOOD ORDERABLES Fin al Result [facility] [address] [place] [phone] * Hepatitis Panel, General (01/30/2025 8:12 AM EDT) Hepatitis A IgM Nonreactive Nonreactive [facility] Comment:IgM antibodies to SANTOS V not detected; does not exclude earlyacute or recovered HAV infection. ~Hepatitis B Surface Antibody NONREACTIVE Nonreactive [facility] Comment:Nonreactive: < 8.00 mIU/mL Hepatitis B Core Antibody Nonreactive Nonreactive [facility] Hepatitis C Antibody Nonreactive Nonreactive [facility] Comment:Antibodies to HCV no t detected; does not exclude early acuteHCV infection. Hepatitis B Surface Ag Negative Negative [facility] Blood 01/30/2025 8:12 AM EDT 01/30/2025 11:10 AM EDT Hortensia Iraheta MD LAB BLOOD ORDERABLES Fin al Result Performing Organization Address [facility]/ZIP Co de Phone Number [facility] [address] [place] [phone] * HIV-1/2 Antigen and Antibodies, Fourth Generation, with Reflexes (01/30/2025 8:12 AM EDT) HIV AB/AG Nonreactive Nonreactive [facility] Comment:HIV-1 p24 Ag and/or HIV-1/HIV-2 Ab not detected.A test result that is nonreactive does not exclude thepossibility of exposure to or infection with HIV-1 and/orHIV-2. Nonreactive results in this assay for individualswith prior exposure to HIV-1 and/or HIV-2 may be due toantigen and antibody levels that are below the limit ofdetection of this assay.The [employer]WEB HIV Ag/Ab Combo assay result andsupplemental assay results should be interpreted inconjunction with the patient's clinical presentation,history and other laboratory results. If the results areinconsistent with clinical evidence, additional testing issuggested to confirm the result. Blood Venous blood specimen / Unknown 01/30/2025 8:12 AM EDT 01/30/2025 11:10 AM EDT Hortensia Iraheta MD LAB BLOOD ORDERABLES Fin al Result Performing Organization Address [facility]/ZIP Co de Phone Number [facility] [address] [place] [phone] * Hemoglobin A1c (01/30/2025 8:12 AM EDT) Hemoglobin A1c 5.3 <6.0 % [facility] Comment:Hemoglobin A1C Refer ence Range Adults: 4.8 - 6.0 % Non diabetic: < 6.0 % Goal: < 7.0 %Additional Action Suggested: > 8.0 %Note: Hemoglobin A1c results are invalid for patients with abnormal amounts of HbF. Blood transfusions may impact the HbA1c concentration in the patient sample. Estimated Average Glucose 105 mg/dL [facility] Comment:eAG = Estimated ave rage glucose which is %A1C expressed asaverage glucose, using the formula of the B3E-VhpmuxbRpdbsih Glucose study (ADAG), Diabetes Care, Vol.31,#8,Jan. 2007 Blood Venous blood specimen / Unknown 01/30/2025 8:12 AM EDT 01/30/2025 11:10 AM EDT us Hortensia Iraheta MD LAB BLOOD ORDERABLES Fin al Result [facility] [address] [place] [phone] * (ABNORMAL) Comprehensive Metabolic Panel (01/30/2025 8:12 AM EDT) Sodium 143 135 - 145 mmol/L [facility] Potassium 4.5 3.3 - 5.1 mmol/L [facility] Chloride 105 96 - 108 mmol/L [facility] Carbon Dioxide 28 22 - 29 mmol/L [facility] Anion Gap 15 12 - 20 [facility] Urea Nitrogen (BUN) 18(H) 9 - 16 mg/dL [facility] Creatinine, Serum 0.75 0.5 - 1.4 mg/dL [facility] Estimated Glomerular Filt Rate >60 [facility] Comment:Chronic Kidney Disea se: Estimated GFR < 60 mL/min/1.90t2Uzdenx Kidney Disease: Estimated GFR < 15 mL/min/1.73m2 Glucose 91 60 - 115 mg/dL [facility] Calcium 9.7 8.4 - 10.2 mg/dL [facility] Bilirubin, Total 0.6 0.0 - 1.0 mg/dL [facility] Aspartate Amino Transferase 25 5 - 31 U/L [facility] Alanine Aminotransferase 16 0 - 31 U/L [facility] Total Protein 7.0 6.5 - 8.0 g/dL [facility] Albumin Level 4.1 3.5 - 5.0 g/dL [facility] Alkaline Phosphatase 86 39 - 117 U/L [facility] Blood Venous blood specimen / Unknown 01/30/2025 8:12 AM EDT 01/30/2025 11:10 AM EDT us Hortensia Iraheta MD LAB BLOOD ORDERABLES Fin al Result [facility] [address] [place] [phone] * Mammography Report 1 (10/18/2021 10:15 AM EDT) Anatomical Region Laterality Modality Breast Bilateral Mammography 10/18/2021 10:1 5 AM EDT Narrative 10/21/2021 9:21 AM EDT Refer to the Notes tab for result details [facility] Procedure: Mammography Report 1 Procedure Note Provider, MD Donta - 09/07/2022 Refer to the Notes tab for result details [facility] Procedure: Mammography Report 1 us Qasim Nuñez MD IMG BI PROCEDURES Final Resu lt * HPV mRNA E6/E7 (02/09/2017 9:55 AM EDT) HPV mRNA E6/E7 Not Detected NOT DETECTED [facility] Comment: This test was performed using the APTIMA(R) HPV Assay ([employer] This assay detects E6/E7 viral messenger RNA (mRNA) from 14 high-risk HPV types (16,18,31,33,35,39,45,51, 52,56,58,59,66,68). For additional information please refer to: http://education.Picturelife/faq/CXW472w4 (This link is being provided for informational/ educational purposes only.) Test Performed by [employer], [employer] [facility], [address] [place] [address] En Gordon M.D., Ph.D., Director of Laboratories , [facility] [id number] Please note: Effective 02/25/2016, HPV testing will be performed using [employer]'s APTIMA test which targets mRNA. Detecting mRNA instead of DNA, as in older methods, offers significant improvements in specificity. 02/09/2017 9:55 AM EDT us Dora Sanders NP HISTORICAL/NON ORDERABLE LABS Fi nal Result [facility] [address] from Last 3 Months or Most Recently Relevant to Health Maintenance [place] [address] [place] [address] C3 FULL Care Teams Security Officer Relationship Specialty Start Date End Date Hortensia Iraheta MD [address] [place] [phone] PCP - General Internal Medicine 02/16/24
--- OUTSIDE RECORDS SUMMARY | 2025-03-09 18:20 | XMS_ITS | Encounter Summary ---
Author Organization [employer] Address [address] [facility] [address] [place] [address] Care Team Providers Care Automatic Folder Seamer Name Role Phone Nedra Bob Primary Care Provider [phone] Hortensia Iraheta MD Primary Care Provider + Reason for Visit * Reason Comments Med Refill Encounter Details Date Type Department Care Team ([facility] st Contact Info) Description 07/12/2023 Refill [facility] [address] [place] [address] Marilyn Hinds, DO [address] [place] [address] Social History Tobacco Use Types Packs/Day Years [...] Description 04/03/2025 9:45 AM EDT Procedure Visit [facility] [address] [place] [address] Hortensia Iraheta MD [address] [place] [address] documented as of this encounter Visit Diagnoses Not on filedocumented in this encounter Additional Health Concerns Assessment Noted Time PHQ-9 Depression Total Score: 3 10/23/19 23 2:00 PM EDT documented as of this encounter Care Teams Automatic Folder Seamer Relationship Specialty Start Date End Date Nedra Bob FNP [address] [place] [address] PCP - General Family Medicine 03/21/22 02/15/24 Hortensia Iraheta MD [address] [place] [phone] PCP - General Internal Medicine 02/16/24 documented as of this encounter
--- OUTSIDE RECORDS SUMMARY | 2025-03-09 18:20 | XMS_ITS | Encounter Summary ---
Author Organization [employer] Address [address] [place] [address] Care Team Providers Care Business Teacher Name Role Phone Nedra Bob Primary Care Provider [phone] Hortensia Iraheta MD Primary Care Provider + Reason for Visit * Reason Comments Med Refill Encounter Details Date Type Department Care Team ([facility] st Contact Info) Description 04/05/2023 Refill [facility] [address] [place] [address] Marilyn Hinds, DO [address] [place] [address] Social History Tobacco Use Types Packs/Day Years [...] Description 04/03/2025 9:45 AM EDT Procedure Visit [facility] [address] [place] [address] Hortensia Iraheta MD [address] [place] [address] documented as of this encounter Visit Diagnoses Not on filedocumented in this encounter Additional Health Concerns Assessment Noted Time PHQ-9 Depression Total Score: 3 10/23/19 23 2:00 PM EDT documented as of this encounter Care Teams Business Teacher Relationship Specialty Start Date End Date Nedra Bob FNP [address] [place] [address] PCP - General Family Medicine 03/21/22 02/15/24 Hortensia Iraheta MD [address] [place] [phone] PCP - General Internal Medicine 02/16/24 documented as of this encounter
--- OUTSIDE RECORDS SUMMARY | 2025-03-09 18:20 | XMS_ITS | Encounter Summary ---
Author Organization [facility] [employer] Address [address] [place] [address] Care Team Providers Care Distribution Center Supervisor Name Role Phone Nedra Bob Primary Care Provider [phone] Hortensia Iraheta MD Primary Care Provider + Reason for Visit * Reason Comments Med Refill Encounter Details Date Type Department Care Team (Late st Contact Info) Description 12/09/2022 Refill [facility] [address] [place] [address] Marilyn Hinds DO [address] [place], [place] [id number] Social History Tobacco Use Types Packs/Day Years [...] Description 04/03/2025 9:45 AM EDT Procedure Visit [facility] [address] [place] [address] Hortensia Iraheta MD [address] [place] [address] documented as of this encounter Visit Diagnoses Not on filedocumented in this encounter Additional Health Concerns Assessment Noted Time PHQ-9 Depression Total Score: 3 10/23/19 23 2:00 PM EDT documented as of this encounter Care Teams Distribution Center Supervisor Relationship Specialty Start Date End Date Nedra Bob FNP [address] [place] [address] PCP - General Family Medicine 03/21/22 02/15/24 Hortensia Iraheta MD [address] [place] [id number] PCP - General Internal Medicine 02/16/24 documented as of this encounter
--- OUTSIDE RECORDS SUMMARY | 2025-03-09 18:20 | XMS_ITS | Encounter Summary ---
Author Organization [employer] Address [address] [facility] [address] [place] [address] Care Team Providers Care [employer] Name Role Phone Nedra Bob Primary Care Provider [phone] Hortensia Iraheta MD Primary Care Provider + Reason for Visit * Reason Comments Med Refill Encounter Details Date Type Department Care Team (Late st Contact Info) Description 10/04/2022 Refill [facility] [address] [place] [address] Nedra Bob FNP [address] [facility] [place] [address] Idiopathic gout, unspecified chronicity, unspecified site Social [...] Description 04/03/2025 9:45 AM EDT Procedure Visit [facility] [address] [place] [address] Hortensia Iraheta MD [address] [place] [address] documented as of this encounter Visit Diagnoses Diagnosis Idiopathic gout, unspecified chronicity, unspecified site documented in this encounter Care Teams [employer] Relationship Specialty Start Date End Date Nedra Bob FNP [address] [place] [id number] PCP - General Family Medicine 03/21/22 02/15/24 Hortensia Iraheta MD [address] [place] [id number] PCP - General Internal Medicine 02/16/24 documented as of this encounter
== END 2025-03-09 14:06 | disposition home or self-care (01) ==
LOC: HO.HOS 13:47
PROVIDERS: PCP Family Medicine; Visit Provider Orthopaedic Surgery
DX: M25.511 Pain in right shoulder (principal)
CPT/HCPCS: 99024

== ENCOUNTER → 2025-03-09 13:47 | Outpatient (BNVA) | payer MEDICAID, SELFPAY | PROVIDERS: PCP Family Medicine; Visit Provider Orthopaedic Surgery | DX: M25.511 Pain in right shoulder (principal); Z98.890 Other specified postprocedural states | CPT/HCPCS: 99212 ==

== ENCOUNTER 2025-05-02 10:42 | Outpatient (AMB) | payer MEDICAID, SELFPAY ==
--- NOTE | 2025-05-02 10:47 | A.OFFVIS_ITS ---
Intake Visit Reasons: PO RT shoulder 02/24/25 DR Intake Note: Arin is a 54 year old female who presents with complaints of mild to moderate discomfort in her right shoulder after undergoing right shoulder arthroscopic surgery on 02/24/2025. She continues with her home stretching program. She denies any fevers or chills. She does take Celebrex and oxycodone which gave her good relief. Allergies penicillin V Allergy (Unknown, Verified 05/02/25 10:51) anaphylaxis, swelling of the face Penicillins (PENICILLINS) Allergy (Unknown, Verified 05/02/25 10:51) Anaphylaxis Sulfa (Sulfonamide Antibiotics) Allergy (Unknown, Verified 05/02/25 10:51) anaphylaxis, swelling of the face sulfamethoxazole (From BACTRIM) Allergy (Unknown, Verified 05/02/25 10:51) Anaphylaxis trimethoprim (From BACTRIM) Allergy (Unknown, Verified 05/02/25 10:51) Anaphylaxis Medication List - Last Reconciled 05/02/25 by Gopal Rae MD acetaminophen ER 650 mg PO Q8H PRN albuterol sulfate 90 mcg/actuation (Ventolin HFA) 2 puffs inhalation Q4H PRN allopurinol 100 mg PO DAILY baclofen 10 mg PO TID PRN celecoxib 200 mg PO DAILY PRN diclofenac potassium 50 mg PO DAILY diclofenac sodium 1% 2 grams topical PRN diphenhydramine HCl (Banophen) 25 mg PO Q6H PRN famotidine 40 mg PO BEDTIME loratadine 10 mg PO DAILY PRN naproxen 500 mg PO oxycodone 5 mg PO Q6H PRN PFSH Medical History (Updated 03/09/25 @ 14:08 by Gopal Rae MD) Gout Anxiety Seasonal allergies Shoulder pain, right GERD (gastroesophageal reflux disease) Asthma Abscess of right buttock Surgical History (Updated 05/02/25 @ 10:54 by BECKY Hernández) S/P arthroscopy of right shoulder Hx of tubal ligation Social History Household Members: None Housing: Apartment Are you a primary behavioral health care coordinator to a significant other at home: No Do you presently have visiting nurse or other home services: No Patient Tobacco Use Status: Former Tobacco user Tobacco use type: Cigarette Physical Exam Extrem Other: Right shoulder examination shows that the surgical incisions are well healed, no erythema, slightly decreased range of motion when compared to her left shoulder, no instability Assessment & Plan Assessment & Plan (1) Right shoulder pain: Code(s): M25.511 - Pain in right shoulder Category: Medical Plan Ms. Siobhan Aguilar continues to do well after undergoing right shoulder arthroscopic surgery on 02/24/2025. She will continue with her home stretching program. The do's and don'ts of lifting were discussed at length with the patient. I did refill her prescription for oxycodone. She will contact me prior to her follow-up appointment in 3 months should any questions or concerns arise. Feel free to call me at any time should questions regarding her orthopedic management arise. Medications: Changed From oxycodone Partial Fill upon patient request. 5 mg PO Q6H PRN 35 tabs 0RF pain To oxycodone Partial Fill upon patient request. 5 mg PO Q12H PRN 25 tabs 0RF pain Coding Level of Care Code Global (47884) Diagnoses Right shoulder pain M25.511
== END 2025-05-02 11:14 | disposition home or self-care (01) ==
LOC: HO.HOS 10:43
PROVIDERS: PCP Family Medicine; Visit Provider Orthopaedic Surgery
DX: M25.511 Pain in right shoulder (principal)
CPT/HCPCS: 99024

== ENCOUNTER → 2025-05-02 10:42 | Outpatient (BNVA) | payer MEDICAID, SELFPAY | PROVIDERS: PCP Family Medicine; Visit Provider Orthopaedic Surgery | DX: M25.511 Pain in right shoulder (principal); Z98.890 Other specified postprocedural states; Z79.891 Long term (current) use of opiate analgesic; Z79.1 Long term (current) use of non-steroidal anti-inflammatories (NSAID) | CPT/HCPCS: 99212 ==